=== PATIENT | male | born 1935 | race Caucasian/White ===

== ENCOUNTER 2018-03-06 14:46 | Outpatient (CLI) ==
--- NOTE | 2018-03-06 15:32 | DI ---
EXAM: PA and lateral views of the chest HISTORY: Cough. COMPARISON: Chest x-ray 08/04/2014 FINDINGS: The cardiomediastinal silhouette is normal. There is no pneumothorax or pleural effusion. There is no consolidation, nodule or mass. The osseous structures demonstrate degenerative disease of the spine. IMPRESSION: No acute cardiopulmonary process
== END 2018-03-06 14:47 | disposition home or self-care (01) ==
LOC: RAD 14:46
PROVIDERS: ATTEND Internal Medicine
DX: R05 Cough (principal)

== ENCOUNTER 2018-04-09 07:47 | Day surgery (SDC) ==
[2018-04-09] MEDS ORDERED: LIDOCAINE 1% 20 ML MDV ID STA (08:35)
[2018-04-09 16:49] VITALS: BP 178/78; TEMP 98.3
--- NOTE | 2018-04-11 10:30 | OP ---
INDICATIONS FOR PROCEDURE: 82-year-old gentleman presents for colonoscopy exam. He has a history of adenomatous polyps with this last colonoscopy approximately three years ago. He has had a little change in his bowel habits lately indicating increased constipation. MEDICATIONS: NONE PROCEDURE: COLONOSCOPY, SNARE POLYPECTOMY. REPORT: The risks, benefits, alternatives and limitations were discussed in detail with the patient. Informed consent was obtained. He elected to have the procedure done without sedation. A digital rectal exam revealed good tone, no mass. Hemorrhoids were felt. The colonoscope was introduced into the rectum and advanced under direct visual guidance to the cecum. The cecum was identified by the appendiceal orifice and IC valve. I then slowly withdrew the scope in a circumferential manner examining the mucosa quite carefully. I looked on the proximal and distal side of folds and flexures as best as possible. I was able to retroflex the scope in the right colon and left colon to increase visualization. On the distal side of the transverse colon there was a small 5 or 6 mm sessile polyp. I removed this by snare technique. In the proximal descending area there is a semi peduculated 7 mm polyp. I removed this by snare technique. I was not able to retrieve this polyp. There is large mouth and small mouth diverticula scattered throughout the descending and sigmoid colon. On retroflex view of the anal canal, there is small 1+ internal hemorrhoids. No other abnormalities were noted. The prep was good. The withdrawal time was 9 minutes and 30 seconds. The patient tolerated the procedure well with stable vital signs and pulse oximetry throughout. IMPRESSION: 1. TWO (2) POLYPS REMOVED ABOVE 2. DIVERTICULOSIS 3. SMALL INTERNAL HEMORRHOIDS RECOMMENDATIONS: 1. High fiber diet 2. Office visit as needed 3. Await pathology results; if everything is benign and he is clinically well, consider a surveillance examination again in three years, sooner if there are any signs or symptoms to indicate otherwise. CC: DR. RHODA BRIAN
== END 2018-04-09 11:30 | disposition home or self-care (01) ==
LOC: SURG 07:47
PROVIDERS: ATTEND Internal Medicine Gastroenterology
DX: D12.3 Benign neoplasm of transverse colon (principal); K57.90 Diverticulosis of intestine, part unspecified, without perforation or abscess without bleeding; Z86.010 Personal history of colon polyps

== ENCOUNTER 2018-04-13 15:34 | Emergency (ER) | payer OTHER ==
[2018-04-13 15:39] VITALS: BP 199/95; TEMP 97.7; BMI 28.8
--- NOTE | 2018-04-13 17:11 | ED.PDOC ---
General ED Provider: Dr. MARCIA SOTO Chief Complaint: Hypertension Stated Complaint: ELevated BP; Had a colonoscopy on Sunday and bp was high then. States he was outside today and when he checked his bp it was 205/104. States does not have htn history, does not take bp meds and has no symptoms. Became worried and came in. Was 195/95 upon arival here Time Seen by Physician: 16:10 Mode of Arrival: Walk-In Information Source: Patient Exam Limitations: No limitations Primary Care Provider: EVELIO DUONG Nursing and Triage Documentation Reviewed and Agree: Yes Does patient meet sepsis criteria?: No System Inflammatory Response Syndrome: Not Applicable Sepsis Protocol: For patient's 13 years and over: Temp is 96.8 and below OR 101 and greater Pulse >90 BPM Resp >20/minute Acutely Altered Mental Status Are patient's symptoms suggestive of a new infection, such as: -Pneumonia -Skin, Soft Tissue -Endocarditis -UTI -Bone, Joint Infection -Implantable Device -Acute Abdominal Infection -Wound Infection -Meningitis -Blood Stream Catheter Infection -Unknown Cardiovascular Complaint Exam - Hypertension Complaint/Exam Symptoms Are: Still present Timing: Intermittent Reported B/P Prior to Arrival: 205/104 Aggravating: Reports: Exertion, Position Alleviating: Reports: None Associated Signs and Symptoms: Denies: Chest pain, Vision changes, Anxiety, Recent stress, Headache, Numbness, Tingling, Weakness, Dizziness, Short of air, Swelling Related History: Reports: Current Miah Inhibitors (Just started) Related Surgical History: Reports: None Cardiac Risk Factors: Reports: None Recent Change in Medications: No JVD Present: No Carotid Bruit Present: No Femoral Pulses Bounding: No Differential Diagnoses: Hypertension, Hypertensive Urgency Review of Systems - Review Of Systems Constitutional: Reports: No symptoms Eyes: Reports: No symptoms Ears, Nose, Mouth, Throat: Reports: No symptoms Respiratory: Reports: No symptoms Cardiac: Reports: No symptoms GI: Reports: No symptoms : Reports: No symptoms Musculoskeletal: Reports: No symptoms Skin: Reports: No symptoms Neurological: Reports: No symptoms Endocrine: Reports: No symptoms Hematologic/Lymphatic: Reports: No symptoms All Other Systems: Reviewed and Negative Past Medical History - Past Medical History Previously Healthy: Yes Endocrine: Reports: None Cardiovascular: Reports: None Respiratory: Reports: None Hematological: Reports: None Gastrointestinal: Reports: None Genitourinary: Reports: None Neuro/Psych: Reports: None Musculoskeletal: Reports: None Cancer: Reports: None - Surgical History General Surgical History: Reports: None - Family History Family History: Reports: None - Social History Smoking Status: Never smoker Hx Substance Use: No Alcohol Screening: Heavy Physical Exam - Physical Exam Appearance: Well-appearing, No pain distress, Well-nourished Eyes: KENAN, EOMI, Conjunctiva clear ENT: Ears normal, Nose normal, Oropharynx normal Respiratory: Airway patent, Breath sounds clear, Breath sounds equal, Respirations nonlabored Cardiovascular: RRR, Pulses normal, No rub, No murmur GI/: Soft, Nontender, No masses, Bowel sounds normal, No Organomegaly Musculoskeletal: Normal strength, ROM intact, No edema, No calf tenderness Skin: Warm, Dry, Normal color Neurological: Sensation intact, Motor intact, Reflexes intact, Cranial nerves intact, Alert, Oriented Psychiatric: Affect appropriate, Mood appropriate Critical Care Note - Critical Care Note Total Time (mins): 30 Course - Course Hematology/Chemistry: 04/13/18 17:30 04/13/18 17:30 Orders, Labs, Meds: Lab Review 04/13/18 04/13/18 04/13/18 17:19 17:30 17:30 WBC 9.25 RBC 4.54 L Hgb 15.1 Hct 43.3 MCV 95.4 H MCH 33.3 H MCHC 34.9 RDW Coeff of Renetta 13.2 Plt Count 183 Immature Gran % (Auto) 0.3 Neut % (Auto) 67.0 Lymph % (Auto) 18.4 [place] % (Auto) 9.8 Eos % (Auto) 4.0 Baso % (Auto) 0.5 Immature Gran # (Auto) 0.0 Neut # (Auto) 6.2 Lymph # (Auto) 1.7 [place] # (Auto) 0.9 Eos # (Auto) 0.4 Baso # (Auto) 0.1 Sodium 138 Potassium 3.8 Chloride 104 Carbon Dioxide 25 Anion Gap 12.8 BUN 12 Creatinine 0.79 Estimated GFR (MDRD) 94.00 BUN/Creatinine Ratio 15.18 Glucose 103 Calcium 9.3 Total Bilirubin 0.7 AST 24 ALT 29 Alkaline Phosphatase 58 Total Protein 7.4 Albumin 3.9 Globulin 3.5 Albumin/Globulin Ratio 1.11 Urine Color Yellow Urine Clarity Clear Urine pH 6.0 Ur Specific [place] 1.015 Urine Protein 2+ Urine Glucose (UA) Negative Urine Ketones Negative Urine Blood Negative Urine Nitrite Negative Urine Bilirubin Negative Urine Urobilinogen 0.2 Ur Leukocyte Esterase Negative Orders Category Date Time Status CBC W/ AUTO DIFF Stat LAB 04/13/18 17:30 Completed CMP [COMPREHENSIVE METABOLIC PANEL] Stat LAB 04/13/18 17:30 Completed UA [URINALYSIS C & S IF INDICATED] Stat LAB 04/13/18 17:19 Completed Clonidine HCl [Catapres] MEDS 04/13/18 17:28 Discontinued 0.1 mg PO ONCE STA CHEST, 1V AP ONLY Stat RADS 04/13/18 17:15 Ordered Medications Discontinued Medications Generic Name Dose Route Start Last Admin Trade Name Freq PRN Reason Stop Dose Admin Clonidine 0.1 mg 04/13/18 17:28 04/13/18 17:33 Catapres PO 04/13/18 17:29 0.1 mg ONCE STA Administration Vital Signs: Temp Pulse Resp BP Pulse Ox 04/13/18 15:34 97.7 F 77 18 199/95 H 96 PHUONG Risk Score PHUONG Risk Score: Risk Score Odds of by 30D 0 0.1 (0.1-0.2) 1 0.3 (0.2-0.3) 2 0.4 (0.3-0.5) 3 0.7 (0.6-0.9) 4 1.2 (1.0-1.5) 5 2.2 (1.9-2.6) 6 3.0 (2.5-3.6) 7 4.8 (3.8-6.1) Departure - Departure Time of Disposition: 19:30 Disposition: HOME SELF-CARE Discharge Problem: Hypertension Instructions: Hypertension (ED) Condition: Good Pt referred to PMD for follow-up: Yes IPMP verified?: No Additional Instructions: Remain on salt restricted diet/Avoid Caffeine/take meds as directed/ See Dr Duong next week/Explained and gave copy of lab Do not abruptly discontinue Clonidine as it can cause rebound hypertension Allergies/Adverse Reactions: Allergies No Known Allergies Allergy (Verified 04/13/18 15:39) Home Medications: Ambulatory Orders Aspirin [Aspirin EC] 325 mg PO DAILY 04/05/18 Clonidine HCl [Catapres] 0.1 mg PO BID #30 tablet 04/13/18 Additional Information: Work up recommended including EKG and portable CXR; Patient refused.Explained importance of complete evaluation even if he did have a EKG & CXR earlier this year. TO SIGN REFUSAL FORM!
[2018-04-13] MEDS ORDERED: CATAPRES PO STA (17:28)
== END 2018-04-13 19:55 | disposition home or self-care (01) ==
LOC: ED 15:34
DX: I10 Essential (primary) hypertension (principal)
CPT/HCPCS: 36415; 80053; 81001; 85025; 99283

== ENCOUNTER 2018-04-27 23:29 | Emergency (ER) ==
[2018-04-27 23:40] VITALS: BP 178/89; TEMP 97; BMI 29.2
== END 2018-04-27 23:45 | disposition left against medical advice (07) ==
LOC: ED 23:29
DX: I10 Essential (primary) hypertension (principal)
CPT/HCPCS: 99281

== ENCOUNTER 2018-07-21 12:00 | Inpatient (IN) | payer OTHER ==
[2018-07-21] MEDS ORDERED: ZOFRAN 4 MG/2 ML IM STA (12:12)
[2018-07-21] MEDS ORDERED: CATAPRES PO STA ×2 (12:12→13:56)
--- NOTE | 2018-07-21 12:39 | CT ---
EXAM: CT scan of the abdomen and pelvis without contrast HISTORY: Abdominal pain, constipation. TECHNIQUE: Helical imaging of the abdomen pelvis was performed without contrast. 3 mm thin axial im ages and coronal and sagittal reconstructions were provided for interpretation. FINDINGS: The liver, spleen, pancreas, adrenal glands and kidneys appear normal. The proximal urete rs are normal size. The small and large bowel loops are normal caliber. There is no free air. No r etroperitoneal abnormalities are seen. The helical images obtained through the pelvis demonstrate a normal appearance of the rectum, urinary bladder. There is no free fluid seen within the pelvis. No retroperitoneal abnormalities are seen. The appendix appears normal. Scattered diverticula are seen within the descending colon and sigmoid colon without acute inflammation. Lung bases are clear. No lytic or blastic lesions are seen withi n the osseous structures. IMPRESSION: There is no bowel obstruction or acute inflammatory change seen within the abdomen and p shabana. No significant constipation. There is no ureteral obstruction. Mild diverticular disease of the descending colon and sigmoid colon without acute formation.
[2018-07-21] MEDS ORDERED: PROCARDIA XL PO STA (13:14)
[2018-07-21] MEDS ORDERED: APRESOLINE PO STA (13:15)
[2018-07-21] MEDS ORDERED: PROCARDIA XL ONE (13:24)
--- NOTE | 2018-07-21 14:38 | ED.PDOC ---
General ED Provider: Dr. MARCIA QUINTANILLA-ER Chief Complaint: Constipation Stated Complaint: im constipated and im nervous Time Seen by Physician: 12:05 Mode of Arrival: Walk-In Information Source: Patient Exam Limitations: No limitations Primary Care Provider: EVELIO ESCOBAR Nursing and Triage Documentation Reviewed and Agree: Yes Does patient meet sepsis criteria?: No System Inflammatory Response Syndrome: Not Applicable Sepsis Protocol: For patient's 13 years and over: Temp is 96.8 and below OR 101 and greater Pulse >90 BPM Resp >20/minute Acutely Altered Mental Status Are patient's symptoms suggestive of a new infection, such as: -Pneumonia -Skin, Soft Tissue -Endocarditis -UTI -Bone, Joint Infection -Implantable Device -Acute Abdominal Infection -Wound Infection -Meningitis -Blood Stream Catheter Infection -Unknown Cardiovascular Complaint Exam - Hypertension Complaint/Exam Onset/Duration: unknown Symptoms Are: Still present Timing: Constant Reported B/P Prior to Arrival: 230/130 Aggravating: Reports: None Alleviating: Reports: None Associated Signs and Symptoms: Denies: Chest pain, Vision changes, Anxiety, Recent stress, Headache, Numbness, Tingling, Weakness, Dizziness, Short of air, Swelling Recent Change in Medications: No A/V [place]: No Papilledema Present: No JVD Present: No Differential Diagnoses: Other Quality Indicator For Non-Traumatic Chest Pain/Syncope: EKG Performed Review of Systems - Review Of Systems Constitutional: Reports: No symptoms Eyes: Reports: No symptoms Ears, Nose, Mouth, Throat: Reports: No symptoms Respiratory: Reports: No symptoms Cardiac: Reports: No symptoms GI: Reports: Nausea : Reports: No symptoms Musculoskeletal: Reports: No symptoms Skin: Reports: No symptoms Neurological: Reports: No symptoms Endocrine: Reports: No symptoms Hematologic/Lymphatic: Reports: No symptoms All Other Systems: Reviewed and Negative Past Medical History - Past Medical History Previously Healthy: Yes Endocrine: Reports: None Cardiovascular: Reports: None Respiratory: Reports: None Hematological: Reports: None Gastrointestinal: Reports: None Genitourinary: Reports: None Neuro/Psych: Reports: None Musculoskeletal: Reports: None Cancer: Reports: None - Surgical History General Surgical History: Reports: None - Family History Family History: Reports: None - Social History Smoking Status: Never smoker Hx Substance Use: No Alcohol Screening: Heavy Lives: With family - Immunizations Tetanus Shot up to Date: No Physical Exam - Physical Exam Appearance: Well-appearing, No pain distress, Well-nourished Eyes: KENAN, EOMI, Conjunctiva clear ENT: Ears normal, Nose normal, Oropharynx normal Neck: Supple Respiratory: Airway patent, Breath sounds clear, Breath sounds equal, Respirations nonlabored Cardiovascular: RRR, Pulses normal, No rub, No murmur GI/: Soft, Nontender, No masses, Bowel sounds normal, No Organomegaly Musculoskeletal: Normal strength, ROM intact, No edema, No calf tenderness Skin: Warm, Dry, Normal color Neurological: Sensation intact, Motor intact, Reflexes intact, Cranial nerves intact, Alert, Oriented Psychiatric: Affect appropriate, Mood appropriate, Anxious Interpretation - Radiology Interpretation Radiology Interpretation By: Radiologist Radiology Results: Negative Exam Interpreted: CT Scan - EKG Interpretation Time of EKG #1: 14:37 Rate: Normal Rhythm: Sinus Ectopy: None [place]: NL ST Segment: Normal Interpretation: nsr Re-Evaluation - Re-Evaluation Time of Re-Evaluation: 14:38 Status: Unchanged (bp 220/100) Vital Signs Stable: Yes Pain Level: 0 Appearance: NAD Lungs: Clear Skin: Warm and Dry Neuro: Alert and Oriented X3 CV: RRR Physician Notification - Case Discussed Physician Notified: dr escobar Time of Notification: 14:38 Critical Care Note - Critical Care Note Total Time (mins): 30 Course - Course Hematology/Chemistry: 07/21/18 13:10 07/21/18 13:10 Orders, Labs, Meds: Lab Review 07/21/18 07/21/18 13:10 13:10 WBC 7.13 RBC 3.81 L Hgb 12.9 L Hct 34.6 L MCV 90.8 MCH 33.9 H MCHC 37.3 H RDW Coeff of Renetta 11.4 L Plt Count 159 Immature Gran % (Auto) 0.1 Neut % (Auto) 84.3 Lymph % (Auto) 8.3 L [place] % (Auto) 6.9 Eos % (Auto) 0.1 Baso % (Auto) 0.3 Immature Gran # (Auto) 0.0 Neut # (Auto) 6.0 Lymph # (Auto) 0.6 [place] # (Auto) 0.5 Eos # (Auto) 0.0 Baso # (Auto) 0.0 ESR 7 Sodium 124.9 L Potassium 4.00 Chloride 92.5 L Carbon Dioxide 23.8 Anion Gap 12.60 BUN 12.2 Creatinine 0.66 Estimated GFR (MDRD) 116.00 BUN/Creatinine Ratio 18.48 Glucose 137.3 H Calcium 8.34 L Total Bilirubin 1.24 AST 35.3 ALT 41.7 Alkaline Phosphatase 32.1 L Total Creatine Kinase 48.2 L Troponin I < 0.012 Total Protein 7.11 Albumin 4.14 Globulin 2.97 Albumin/Globulin Ratio 1.39 Amylase 64.7 Lipase 49.4 TSH 1.940 Orders Category Date Time Status EKG-(ED ONLY) Stat CARDIO 07/21/18 12:11 Completed Hardwood Finisher [ED BOOK CANVASSER APPLIED] .ONCE EMERGENCY 07/21/18 12:12 Active AMYLASE Stat LAB 07/21/18 13:10 Completed CBC W/ AUTO DIFF Stat LAB 07/21/18 13:10 Completed COMPREHENSIVE METABOLIC PANEL Stat LAB 07/21/18 13:10 Completed CREATINE KINASE Stat LAB 07/21/18 13:10 Completed ESR Stat LAB 07/21/18 13:10 Completed LIPASE Stat LAB 07/21/18 13:10 Completed THYROID STIMULATING HORMONE Stat LAB 07/21/18 13:10 Completed TROPONIN I Stat LAB 07/21/18 13:10 Completed URINALYSIS C & S IF INDICATED Stat LAB 07/21/18 12:11 Uncollected Clonidine HCl [Catapres] MEDS 07/21/18 12:12 Discontinued 0.1 mg PO ONCE STA Clonidine HCl [Catapres] MEDS 07/21/18 13:56 Discontinued 0.1 mg PO ONCE STA Hydralazine HCl [Apresoline] MEDS 07/21/18 13:15 Discontinued 10 mg PO ONCE STA [id number] MG in 0.86% SODIUM CHLORIDE @ 5 MG/HR( MEDS 07/21/18 15:00 Ordered 200ml) 0.9 % Sodium Chloride [Premix 200Ml 0.86% Sodium Chloride] 1 bag Nicardipine in NaCl, Iso-Osm [Cardene-NaCl 20 mg/200 ml Soln] 20 mg IV 5 mg/hr Nifedipine [Procardia Xl] MEDS 07/21/18 13:24 Discontinued 30 mg .ROUTE .STK-MED ONE Nifedipine [Procardia Xl] MEDS 07/21/18 13:14 Discontinued 60 mg PO ONCE STA Ondansetron HCl/Pf [Zofran 4 mg/2 ml] MEDS 07/21/18 12:12 Discontinued 4 mg IM ONCE STA CT ABDOMEN/PELVIS WO CONTRAST Stat RADS 07/21/18 12:13 Completed Medications Discontinued Medications Generic Name Dose Route Start Last Admin Trade Name Vanita HYDE Reason Stop Dose Admin Clonidine 0.1 mg 07/21/18 12:12 07/21/18 12:27 Catapres PO 07/21/18 12:13 0.1 mg ONCE STA Administration Clonidine 0.1 mg 07/21/18 13:56 07/21/18 14:01 Catapres PO 07/21/18 13:57 0.1 mg ONCE STA Administration Hydralazine HCl 10 mg 07/21/18 13:15 07/21/18 13:25 Apresoline PO 07/21/18 13:16 10 mg ONCE STA Administration Nifedipine 60 mg 07/21/18 13:14 07/21/18 13:25 Procardia Xl PO 07/21/18 13:15 60 mg ONCE STA Administration Ondansetron HCl 4 mg 07/21/18 12:12 07/21/18 12:27 Zofran 4 Mg/2 Ml IM 07/21/18 12:13 4 mg ONCE STA Administration Vital Signs: Temp Pulse Resp BP Pulse Ox 07/21/18 12:01 96.9 F L 87 20 232/110 H 96 PHUONG Risk Score PHUONG Risk Score: Risk Score Odds of by 30D 0 0.1 (0.1-0.2) 1 0.3 (0.2-0.3) 2 0.4 (0.3-0.5) 3 0.7 (0.6-0.9) 4 1.2 (1.0-1.5) 5 2.2 (1.9-2.6) 6 3.0 (2.5-3.6) 7 4.8 (3.8-6.1) Departure - Departure Time of Disposition: 14:38 Disposition: HOME SELF-CARE Discharge Problem: Malignant hypertension Instructions: Hypertensive Crisis (ED) Condition: Good Pt referred to PMD for follow-up: Yes IPMP verified?: No Allergies/Adverse Reactions: Allergies No Known Allergies Allergy (Verified 07/21/18 12:04) Home Medications: Ambulatory Orders Aspirin [Aspirin EC] 325 mg PO DAILY 04/05/18 Clonidine HCl [Catapres] 0.1 mg PO BID #30 tablet 04/13/18 Losartan Potassium [Cozaar] 50 mg PO DAILY 04/27/18 Disposition Discussed With: Patient, Family
[2018-07-21] MEDS ORDERED: PHENERGAN 25 MG/ML VIAL 12.5 MG in SODIUM CHLORIDE 50 ML IV PRN (14:41)
[2018-07-21] MEDS ORDERED: CARDENE-NACL 20 MG/200 ML SOLN 20 MG in PREMIX 200ML 0.86% SODIUM CHLORIDE 1 BAG IV SCH (15:00)
[2018-07-21] MEDS ORDERED: PHENERGAN 25 MG/ML VIAL ONE ×2 (15:22→22:25)
[2018-07-21] MEDS ORDERED: CARDENE-NACL 20 MG/200 ML SOLN 200 ML IV ONE ×2 (15:22→20:53)
[2018-07-21 15:33] VITALS: BMI 27.6
[2018-07-21] MEDS ORDERED: SODIUM CHLORIDE 50 ML IV ONE (15:49)
[2018-07-21] MEDS: MIRALAX PO SCH ×2 (15:52→20:31)
[2018-07-21] MEDS: SENNA PO SCH (15:52)
[2018-07-21] MEDS: VALIUM PO SCH ×2 (18:26→20:32)
[2018-07-21] MEDS: SODIUM CHLORIDE 1,000 ML IV SCH (18:26)
[2018-07-21] MEDS: ANTIVERT PO SCH ×2 (18:26→20:31)
[2018-07-21] MEDS: CARDENE-NACL 20 MG/200 ML SOLN 20 MG in PREMIX 200ML 0.86% SODIUM CHLORIDE 1 BAG IV SCH ×2 (18:28→21:06)
[2018-07-21] MEDS: CATAPRES PO SCH (20:31)
[2018-07-21] MEDS: TYLENOL PO PRN (21:53)
[2018-07-22] MEDS ORDERED: CARDENE-NACL 20 MG/200 ML SOLN 200 ML IV ONE (02:09)
[2018-07-22] MEDS: CARDENE-NACL 20 MG/200 ML SOLN 20 MG in PREMIX 200ML 0.86% SODIUM CHLORIDE 1 BAG IV SCH ×2 (02:23→09:07)
[2018-07-22] MEDS: VALIUM PO SCH (05:05)
[2018-07-22] MEDS ORDERED: LOVENOX SUBCUT SCH (09:00)
[2018-07-22] MEDS ORDERED: COZAAR PO SCH (09:00)
[2018-07-22] MEDS ORDERED: NON-FORMULARY MEDICATION (Losartan Potassium 50 MG) PO SCH (09:00)
--- NOTE | 2018-07-22 11:52 | PN ---
DATE OF SERVICE: 07/21/18 SUBJECTIVE: This is a 83-year-old White Male who was hospitalized with light-headedness, head movement with nausea and had vomited once just before coming to the emergency room today. Blood pressure was recorded as 120/120. The patient is on Cardene drip now. When I examined the patient in [facility], the patient's blood pressure was 145/85 with 5 mg/hr Cardene drip. REVIEW OF SYSTEMS: CONSTITUTIONAL: No night sweats. No fatigue, malaise, lethargy. No fever or chills. HEENT: Eyes: No visual changes. No eye pain. No eye discharge. ENT: No runny nose. No epistaxis. No sinus pain. No sore throat. No odynophagia. No congestion. RESPIRATORY: No cough, no congestion. No hemoptysis. No shortness of breath. CARDIOVASCULAR: No angina symptoms. No CHF symptoms. No atypical chest pain for CAD. No palpitations. No orthopnea. GASTROINTESTINAL: No abdominal pain. Mild nausea. No vomiting. No diarrhea or constipation. No hematemesis. No hematochezia. GENITOURINARY: No urgency. No frequency. No dysuria. No hematuria. No obstructive symptoms. No discharge. No pain. No significant abnormal bleeding. MUSCULOSKELETAL: No musculoskeletal pain; no joint swelling. NEUROLOGICAL: No headache. No neck pain. No syncope. No seizures. No dizziness. PSYCHIATRIC: Not anxious. No depression. No suicidal thoughts. No homicidal thoughts. SKIN: No rash. No lesions. No wounds. ENDOCRINE: No unexplained weight loss. No weight gain. HEMATOLOGIC/LYMPHATIC: No anemia. No purpura. No petechiae. No prolonged or excessive bleeding. No palpable lymph nodes. PHYSICAL EXAMINATION: GENERAL: The patient is oriented to time, place and person. HEENT: Head normocephalic, atraumatic. Eyes: Extraocular muscles are intact. Pupils are equal, round and reactive to light and accommodation. Ears: No lesions. Nose appeared normal. Throat: No exudate or erythema. NECK: Supple. No JVD, no carotid bruit. No lymphadenopathy or thyromegaly. LUNGS: Clear to auscultation. Percussion note normal. Chest symmetrical. HEART: S1, S2, no S3. No murmurs. No cyanosis or clubbing. No ascites. Pulses: Dorsalis pedis and posterior tibial pulses +1 to +2 both sides. ABDOMEN: Soft. Nontender. Bowel sounds active. No CVA tenderness. No mass felt. EXTREMITIES: No edema. Full range of motion of all extremities, equal. NEUROLOGIC: No focal deficit. Cranial nerves II through XII are grossly intact. No headache, no double vision or headache. SKIN: Not dry. Intact. Turgor - normal. LYMPHATIC: No palpable lymph nodes/no lymphedema. MUSCULOSKELETAL: Normal joints with no swelling. Muscle tone is normal. ASSESSMENT: 1. SEVERE HYPERTENSION 2. ACUTE VESTIBULAR DYSFUNCTION 3. DYSLIPIDEMIA 4. CHRONIC LUNG DISEASE WITH ASTHMA PLAN: 1. Continue Cardene drip. 2. Also start Antivert and Valium. The patient's CT scan of the abdomen was unremarkable. CONDITION: Stable TIME SPENT: More than 30 minutes. Plan and coordination of the patient's care discussed in the presence of nurse. SNEHAL
[2018-07-22] MEDS: ANTIVERT PO SCH (12:28)
[2018-07-22] MEDS ORDERED: ZOFRAN 4 MG/2 ML ONE (12:40)
[2018-07-22] MEDS: COZAAR PO SCH ×2 (12:45→20:19)
[2018-07-22] MEDS: CATAPRES PO SCH ×2 (12:45→20:19)
[2018-07-22] MEDS: ZIAC 5-6.25 MG PO SCH (12:45)
[2018-07-22] MEDS: MIRALAX PO SCH ×2 (12:46→20:20)
[2018-07-22] MEDS: SENNA PO SCH (12:48)
[2018-07-22] MEDS: ASPIRIN EC PO SCH (12:55)
[2018-07-22] MEDS: K-DUR PO SCH ×2 (12:56→18:24)
--- NOTE | 2018-07-22 13:04 | PN ---
DATE OF SERVICE: 07/22/18 SUBJECTIVE: 83-year-old white male hospitalized with severe hypertension. The patient had dizziness, light-headedness with nausea for 2 to 3 days prior to that. The patient's dizziness and nausea subsided. The patient seems to be confused but alert. He seems to be somewhat angry. Blood pressure systolic is 145. REVIEW OF SYSTEMS: CONSTITUTIONAL: No night sweats. No fatigue, malaise, lethargy. No fever or chills. HEENT: Eyes: No visual changes. No eye pain. No eye discharge. ENT: No runny nose. No epistaxis. No sinus pain. No sore throat. No odynophagia. No congestion. RESPIRATORY: No cough, no congestion. No hemoptysis. No shortness of breath. CARDIOVASCULAR: No angina symptoms. No CHF symptoms. No atypical chest pain for CAD. No palpitations. No orthopnea. GASTROINTESTINAL: No abdominal pain. No nausea or vomiting. No diarrhea or constipation. No hematemesis. No hematochezia. GENITOURINARY: No urgency. No frequency. No dysuria. No hematuria. No obstructive symptoms. No discharge. No pain. No significant abnormal bleeding. MUSCULOSKELETAL: No musculoskeletal pain; no joint swelling. NEUROLOGICAL: The patient is oriented to person and place. No headache. No neck pain. No syncope. No seizures. No dizziness. PSYCHIATRIC: Not anxious. No depression. No suicidal thoughts. No homicidal thoughts. SKIN: No rash. No lesions. No wounds. ENDOCRINE: No unexplained weight loss. No weight gain. HEMATOLOGIC/LYMPHATIC: No anemia. No purpura. No petechiae. No prolonged or excessive bleeding. No palpable lymph nodes. PHYSICAL EXAMINATION: VITAL SIGNS: BP systolic 145. Temperature 99.3, pulse 75, respiratory rate 20, BP 130/65, pulse ox 94% on room air. HEENT: Head normocephalic, atraumatic. Eyes: Extraocular muscles are intact. Pupils are equal, round and reactive to light and accommodation. Ears: No lesions. Nose appeared normal. Throat: No exudate or erythema. NECK: Supple. No JVD, no carotid bruit. No lymphadenopathy or thyromegaly. LUNGS: Decreased breath sounds but clear to auscultation. Percussion note normal. Chest symmetrical. HEART: S1, S2, no S3. No murmurs. No cyanosis or clubbing. No ascites. Pulses: Dorsalis pedis and posterior tibial pulses +1 to +2 both sides. ABDOMEN: Soft. Nontender. Bowel sounds active. No CVA tenderness. No mass felt. EXTREMITIES: No edema. Full range of motion of all extremities, equal. Babinski is downgoing. Face is symmetrical. Pupils equal and reactive to light normally. Swallow is normal. Gait is steady with help. He is able to take a few steps on his own which he had a problem according to the on Sunday, mainly on Sunday. NEUROLOGIC: Oriented to person and place. No focal deficit. Cranial nerves II through XII are grossly intact. No headache, no double vision or headache. SKIN: Not dry. Intact. Turgor - normal. LYMPHATIC: No palpable lymph nodes/no lymphedema. MUSCULOSKELETAL: Normal joints with no swelling. Muscle tone is normal. LABS: Hemoglobin 12.9, hematocrit 34, WBC 8,900, normal differential. Creatinine 0.6, BUN 12, potassium 3.5. ASSESSMENT: 1. HYPERTENSION SEEMS TO BE UNDER CONTROL WITH CARDENE DRIP. 2. CONFUSION/DEMENTIA COULD BE FROM CHANGE OF PLACE, HOSPITALIZATION, MEDICATION EFFECT. 3. 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 PLAN: 1. Will discontinue Cardene drip and will start the patient on Ziac 5/6.25 daily. 2. Cozaar 50 mg b.i.d. 3. Norvasc 5 mg at night. 4. The changes were discussed with the patient. 5. MRI of the brain with contrast and carotid scan. 6. Goal of blood pressure 135/85 or less discussed. 7. DASH diet discussed. Telemetry no arrhythmias, EKG sinus rhythm, nonspecific ST-T wave change. ADDENDUM: The patient's MRI showed possibility of heart defect vs acute left pontine infarct; clinical correlation was suggested. 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 Likely cause is hypertension with lacunar infarct mostly infarct in the pontine area or lacunar. The patient's blood pressure initially was 220/120 now the systolic is from 140 to 170 - 180. The patient is off Cardene drip. He has been started on Ziac 5/6.25 along with Cozaar 50 b.i.d. and Clonidine 0.1 twice a day. Norvasc 5 mg extra dose with IV Vasotec was given. Now the systolic blood pressure is 160. The patient's confusion could be from hypertensive encephalopathy with some parts of stroke. The patient is moving all his extremities. The left side of the carotid artery showed 50 to 70% plaque for which she is going to undergo CT angiogram tomorrow. The patient's overall condition is stable. Later on the patient's will be talked to about the stroke but at the present time she is not here. ADDENDUM: I talked to around 4:45 p.m. According to her, the patient's problem started on Sunday morning, noticed that he was somewhat unsteady with his gait and somewhat confused. He had very poor intake throughout the day. The problem continued on Sunday. On Sunday evening she decided to bring him to the emergency room. The patient's problem was worse according to the when he started moving, if he sits down or stays still he was fine. Nausea was associated with walking. I explained to her that the patient had a stroke involving demarcus area, brainstem area. The balance gets affected and his confusion could be related to hypertensive encephalopathy. The medications all discussed with the patient. The patient is going to have CT angiogram tomorrow of carotid arteries and brain vessels. According to the , the patient is not taking his medications regularly. CONDITION: Stable. PROGNOSIS: Guarded. TIME SPENT: More than 30 minutes. Plan and coordination of the patient's care discussed in the presence of nurse. SNEHAL
--- NOTE | 2018-07-22 13:19 | MRI ---
EXAM: MRI brain without and with IV contrast. DATE: 07/22/2018. HISTORY: Dizziness, headaches, sudden onset of confusion. TECHNIQUE: Sagittal T1W postcontrast, axial T2W, axial FLAIR, axial T1W pre and postcontrast, axial DWI, coronal T1W postcontrast, and coronal T2W GRE sequences of the brain were obtained using 1.2 Pamela la magnet. Note: Motion artifacts on multiple sequences limit sensitivity of the examination. CONTRAST: Dotarem - 17 ml IV. COMPARISON: None. FINDINGS: The lateral ventricles, third ventricle, Sylvian fissures, and many cerebral sulci are pro minent. Aqueduct of Sylvius appears narrow. Fourth ventricle is not enlarged. No midline shift, mass effect or abnormal extra-axial fluid collection is apparent. A 6 x 3 mm DWI mildly bright focus in the lef t paramidline demarcus is seen on axial image #8. No acute hemorrhage or enhancing neoplasm is identifie d. No abnormal contrast enhancement is identified in the brain, meninges or dura. Small, confluent rim of T2W/FLAIR hyperintensity is observed in the white matter abutting each lateral ventricle. Sma ll number of 2-5 mm diameter, T2W/FLAIR bright, non-enhancing foci are scattered within the marrufo ra diata, centrum semiovale and subcortical white matter bilaterally. T2W bright, T1W/FLAIR dark, 6 mm focus is present in the left caudate head. The durham - white matter differentiation is normal. No mi gration or diverticulation abnormality is identified. The amygdala and parahippocampal gyri are rambo lar bilaterally. The 7th/8th cranial nerve complexes, cerebellopontine angles, and visible cervical spinal cord are normal. There is no cerebellar tonsillar ectopia. The pituitary gland is questionab ly small in size. Corpus callosum is normal in size and configuration. Flow voids are present in th e major intracranial arteries and in the dural venous sinuses. No aneurysm, AVM or dural venous sinu s thrombosis is apparent. No orbit abnormality is identified. The mastoid air cells are unremarkabl e. There is no acute sinusitis. No neck mass or lymphadenopathy is detected. No calvarial neoplasm or acute fracture is evident. IMPRESSIONS: 1. DWI artifact versus acute infarct of the left paramidline demarcus. Correlate with clinical symptoms . 2. Central > peripheral cerebral atrophy is more likely than NPH. 3. 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 4. No acute hemorrhage or enhancing neoplasm. 5. 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 6. Somewhat small pituitary gland.
--- NOTE | 2018-07-22 13:32 | US ---
EXAM: Carotid ultrasound HISTORY: Sudden onset of confusion, hypertension, dizziness COMPARISON: None TECHNIQUE: Carotid ultrasound was performed using Duplex imaging with durham scale, color, and Doppler imaging performed. FINDINGS: Right carotid: There is atherosclerotic plaque in the common carotid and bulb/internal carotid arter y. Narrowing in the bulb/proximal internal carotid artery appears moderate or severe. Peak systolic v elocity measurement in the right internal carotid artery is 0.9 meters per second. End-diastolic jayashree ocity measurement in the right internal carotid artery is 0.2 meters per second. Right internal to c ommon carotid artery peak systolic velocity ratio is 1.2. Flow in the right vertebral artery is ante grade. Left carotid: There is atherosclerotic plaque in the common carotid and bulb/internal carotid artery . Narrowing in the bulb/proximal internal carotid artery appears moderate or severe Peak systolic ve locity measurement in the left internal carotid artery is 1.3 meters per second. End-diastolic veloc ity measurement in the left internal carotid artery is 0.2 meters per second. Left internal to commo n carotid artery peak systolic velocity ratio measures 2.0. Flow in the left vertebral artery is ant egrade. IMPRESSION: 1. Right internal carotid: Peak systolic velocity corresponds with mild (less than 50%) narrowing; ho wever, narrowing in the bulb/proximal internal carotid artery appears moderate or severe 2. Left internal carotid: Peak systolic velocity corresponds with moderate (50 - 69%) narrowing; hernandez rashmi, narrowing in the bulb/proximal internal carotid artery appears moderate or severe 3. Correlation with CT angiography neck recommended given discrepancy between velocities and visual estimate of narrowing.
[2018-07-22] MEDS ORDERED: VASOTEC IV IVP STA (14:57)
[2018-07-22] MEDS ORDERED: NORVASC PO STA (14:58)
[2018-07-22] MEDS ORDERED: LOVENOX SUBCUT STA (15:01)
[2018-07-22] MEDS: SODIUM CHLORIDE 1,000 ML IV SCH (15:31)
[2018-07-22] MEDS ORDERED: NORVASC PO SCH (21:00)
[2018-07-23] MEDS: ZOFRAN 4 MG/2 ML IVP PRN ×3 (03:02→22:09)
[2018-07-23] MEDS: SODIUM CHLORIDE 1,000 ML IV SCH (03:09)
[2018-07-23] MEDS: K-DUR PO SCH ×5 (08:53→21:40)
[2018-07-23] MEDS: CATAPRES PO SCH ×2 (08:59→21:32)
[2018-07-23] MEDS: ZIAC 5-6.25 MG PO SCH (08:59)
[2018-07-23] MEDS: COZAAR PO SCH ×2 (09:00→21:33)
[2018-07-23] MEDS ORDERED: LOVENOX SUBCUT SCH (09:00)
[2018-07-23] MEDS: ASPIRIN EC PO SCH ×2 (09:00→09:13)
[2018-07-23] MEDS: SENNA PO SCH (09:00)
[2018-07-23] MEDS: PROCARDIA XL PO SCH ×2 (09:01→21:38)
--- NOTE | 2018-07-23 11:13 | RS.PTINEVL ---
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 reports pt was not confused or unsteady prior to CVA. - Level of function Prior to this admission, the patient could do the following:: Independent Selfcare, Independent ADL's, Independent Ambulation, Drive Current Level of Function: Partially Dependent Current Equipment Used at Home: none Interventions - Objective Patient Orientation: Person, Place Current Interventions: IV's, Oxygen, Telemetry Range of Motion - ROM Right Upper Extremity AROM: WFL's Left Upper Extremity AROM: WFL's Right Lower Extremity AROM: WFL's Left Lower Extremity AROM: WFL's Muscle Strength - Muscle Strength Right Upper Extremity Strength: Mild Weakness (grossly 4/5) Left Upper Extremity Strength: Mild Weakness (grossly 4/5) Right Lower Extremity Strength: Mild Weakness (hip flex 4-/5, knee flex/ext 4/5 , ankle DF/PF 4/5) Left Lower Extremity Strength: Mild Weakness (hip flex 4-/5, knee flex/ext 4/5, ankle DF/PF 4/5) Sensation - Sensation Right Upper Extremity Sensation: Intact/Normal Left Upper Extremity Sensation: Intact/Normal Right Lower Extremity Sensation: Intact/Normal Left Lower Extremity Sensation: Intact/Normal Palpation Palpation Findings: None/Normal Balance - Sitting Balance and Reactions Static Sitting Balance: Poor Dynamic Sitting Balance: Poor Sitting Equilibrium Reactions: Delayed Left, Delayed Right Sitting Protective Reactions: Absent Left, Absent Right - Standing Balance and Reactions Static Standing Balance: Poor Dynamic Standing Balance: Poor Standing Equilibrium Reactions: Delayed Left, Delayed Right Standing Protective Reactions: Delayed Left, Delayed Right - Comments Balance Assessment Comments: tinetti balance assessment score: 07/05 consistent with high risk of falls Functional Mobility - Bed Mobility Rolling R/L: CGA Supine to Sit: Min Assist - Transfers Sit to Stand: CGA Stand to Sit: CGA - Safety Awareness Safety Awareness: Poor NATALI INDEX SCORE: n/a Ambulation - Ambulation Assistive Device Used: Gait belt Orthotic/Prosthetic Device: No Distance: 10ft in room Assistance needed with Ambulation: Min Assist Gait Deviations: Ataxic gait, Short stride, Deviates from path Ambulation Comments: pt leans backward with standing, wide SOTO, decreased step length, ataxic gait Factors Affecting Ambulation: Decreased Balance, Weakness, Decreased Safety, Cognitive Status, Limited Endurance Treatment time - Time with patient Length of Evaluation: 24 Total treatment time: 27 Patient Education - Education Patient Education: Activity Modification, Education of Plan of Care Teaching Recipient: Patient, Family Teaching Methods: Discussion Comments: discussion with patient and re: POC and MD limiting PT to room due to elevated BP. RN reports last BP 154/82. Assessment - Assessment Problem List:: Decreased level of function, Requires training/education, Decreased safety/Risk of falls, Weakness, Cognitive status limits abilities Rehab Potential: Good Further Therapy Indicated?: Yes Candidate for Swing Bed for Therapy Services?: pt may be candidate for swing bed due to previous level of function was independent living at home with . Evaluation Complexity: HISTORY: Medium (CVA, HTN, diverticulosis), EXAM OF BODY SYSTEMS: Medium (strength, balance, gait, posture, ), CLINICAL PRESENTATION: Medium (evolving), CLINICAL DECISION MAKING: Medium Short Term Goals GOAL #1: pt independent with positioning in bed. Goal to be met by: 07/26/18 GOAL #2: Transfer sup to/from sit CGA, sit to/from stand CGA Goal to be met by: 07/26/18 GOAL #3: pt amb with AAD 40ft with no LOB with CGA x 1 Goal to be met by: 07/26/18 GOAL #4: Improve dyn stand balance as noted by tinetti score Goal to be met by: 07/26/18 Halfway Goals GOAL #1: Transfer sup to/from sit to/from stand SBA Goal to be met by: 07/29/18 GOAL #2: pt amb functional household distances with AAD with no LOB SBA Goal to be met by: 07/29/18 GOAL #3: Improve BLE strength 4+ to 5/5 Goal to be met by: 07/29/18 Plan Plan of Care: Therapeutic EX, Therapeutic Activity Other:: gait training Frequency of Treatment: 1-2 X day, as tolerated Duration of Treatment: 1 Week Anticipated Discharge Destination: Home Treatment Diagnosis (ICD 10 Codes): ataxic gait R26.0. balance impairment R26.81. weakness M62.81 Has the Physician been added for Co-signature?: Yes
[2018-07-23] MEDS: MIRALAX PO SCH ×2 (12:46→21:38)
[2018-07-23] MEDS: TYLENOL PO PRN (13:36)
--- NOTE | 2018-07-23 16:09 | CT ---
EXAM: CTA of the neck was performed with and without contrast TECHNIQUE: Helical axial CTA of the neck was performed with and without contrast with multiplanar re constructions and separate work station 3-D renderings. COMPARISON: Carotid duplex from yesterday HISTORY: Carotid stenosis with discrepancy between the velocities and visual degree of atherosclerosi s on ultrasound FINDINGS: There is no acute soft tissue abnormality. There are no neck masses or pathologic lymph nod es. The thyroid gland is unremarkable. No acute abnormality in the upper chest. There are no acute os seous abnormalities. There is advanced degenerative change in the cervical spine.There is some emphys mikel in the lung apices. Aorta: There is advanced calcific atherosclerosis of the aorta with no evidence for dissection or an eurysm. The bilateral subclavian and brachio-cephalic arteries are widely patent. There is normal br anching anatomy of the great vessels. Right carotid artery: The origin of the right common carotid artery off the brachiocephalic and the proximal common carotid artery in the neck are widely patent. There is advanced calcific atherosclero sis at the common carotid bifurcation which results in 80% luminal diameter narrowing of the distal aspect of the common carotid artery at the bifurcation. There is a post stenotic dilatation of the r ight internal carotid artery and the more distal cervical right internal carotid artery is widely pat ent but somewhat diminutive. Right vertebral artery: The origin of the right vertebral artery from the right subclavian artery is widely patent. The course of the right vertebral artery in the neck is normal with no focal stenosi s or dissection or aneurysm. Left carotid artery: The origin of the left common carotid artery off the aortic arch and the common carotid artery in the neck are widely patent. Likewise there is advanced calcific atherosclerosis at the bifurcation resulting in high-grade stenosis also measuring about 80% luminal diameter narrowing with a post stenotic dilatation of the left internal carotid artery. The left internal carotid aislinn ry distally in the neck is widely patent but also diminutive. Left vertebral artery: There is a low origin of the left vertebral artery off of the subclavian arter y which is widely patent. The course of the left vertebral artery in the neck is unremarkable with no focal stenosis or aneurysm or dissection. The vertebral arteries are codominant. IMPRESSION: 1. 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 2. Widely patent vertebral arteries.
[2018-07-23] MEDS ORDERED: DULCOLAX RC PRN (21:05)
[2018-07-23] MEDS ORDERED: XANAX PO STA (21:06)
[2018-07-23] MEDS ORDERED: VISTARIL INJ IM PRN (21:07)
[2018-07-24 06:23] VITALS: TEMP 98.2
[2018-07-24] MEDS ORDERED: VASOTEC IV IVP STA (06:42)
[2018-07-24] MEDS ORDERED: CATAPRES ONE (07:59)
[2018-07-24] MEDS: COZAAR PO SCH (08:06)
[2018-07-24] MEDS: K-DUR PO SCH (08:07)
[2018-07-24] MEDS: SENNA PO SCH (08:07)
[2018-07-24] MEDS: PROCARDIA XL PO SCH (08:07)
[2018-07-24] MEDS: ASPIRIN EC PO SCH (08:07)
[2018-07-24] MEDS: ZIAC 5-6.25 MG PO SCH (08:07)
[2018-07-24] MEDS ORDERED: THORAZINE PO STA (08:13)
[2018-07-24] MEDS ORDERED: ATIVAN IVP STA (08:13)
[2018-07-24] MEDS: MIRALAX PO SCH (08:56)
[2018-07-24] MEDS: SODIUM CHLORIDE 1,000 ML IV SCH (08:57)
[2018-07-24] MEDS ORDERED: PLAVIX PO SCH (09:00)
[2018-07-24] MEDS ORDERED: CATAPRES PO SCH (09:00)
--- NOTE | 2018-07-24 09:46 | HP ---
DATE OF SERVICE: 07/21/18 HISTORY OF PRESENT ILLNESS: This is an 83-year-old male who presented to the emergency room complaining of nausea, light-headedness, dizzy. He has a history of noncompliance with both medications, lifestyle, followup. PAST MEDICAL HISTORY: Dyslipidemia for which he refuses any statin treatment Hypertension Osteoarthritis Previous smoker PAST SURGICAL HISTORY: None REVIEW OF SYSTEMS: CONSTITUTIONAL: No night sweats. No fatigue, malaise, lethargy. No fever or chills. HEENT: Eyes: No visual changes. No eye pain. No eye discharge. ENT: No runny nose. No epistaxis. No sinus pain. No sore throat. No odynophagia. No ear pain. No congestion. RESPIRATORY: No cough, no congestion. No hemoptysis. No shortness of breath. CARDIOVASCULAR: No angina symptoms. No CHF symptoms. No atypical chest pain for CAD. No palpitations. No PND. No orthopnea. GASTROINTESTINAL: Positive for nausea. No abdominal pain. No vomiting. No diarrhea or constipation. No hematemesis. No hematochezia. GENITOURINARY: No urgency. No frequency. No dysuria. No hematuria. No obstructive symptoms. No discharge. No pain. No significant abnormal bleeding. MUSCULOSKELETAL: No musculoskeletal pain. No joint swelling. No arthritis. NEUROLOGICAL: Positive for dizziness, light-headed. No headache. No neck pain. No syncope. No seizures. PSYCHIATRIC: Not anxious. No depression. No suicidal thoughts. No homicidal thoughts. SKIN: No rash. No lesions. No wounds. ENDOCRINE: No unexplained weight loss. No weight gain. HEMATOLOGIC/LYMPHATIC: No anemia. No purpura. No petechiae. No prolonged or excessive bleeding. No palpable lymph nodes. PERSONAL/FAMILY/SOCIAL HISTORY: Lives with his . Denies any alcohol or ilicit drug use. MEDICATIONS: (HOME) Aspirin 325 mg p.o. q.3d Catapres 0.1 mg p.o. b.i.d. Cozaar 50 mg p.o.b .i.d. ALLERGIES: NKDA PHYSICAL EXAMINATION: VITAL SIGNS: Temperature 96.9, heart rate 87, respirations 20, BP 232/110, pulse ox 96%. HEENT: Head normocephalic, atraumatic. Eyes: Extraocular muscles are intact. Pupils are equal, round and reactive to light and accommodation. Ears: No lesions. Nose appeared normal. Throat: No exudate or erythema. NECK: Supple. No JVD, no carotid bruit. No lymphadenopathy or thyromegaly. LUNGS: Diminished breath sounds. Clear to auscultation. Percussion note normal. Chest symmetrical. HEART: S1, S2, no S3. No murmurs. No cyanosis or clubbing. No ascites. Pulses: Dorsalis pedis and posterior tibial pulses +1 to +2 bilaterally. ABDOMEN: Soft. Nontender. Bowel sounds active. No CVA tenderness. No mass felt. EXTREMITIES: No edema. Full range of motion of all extremities, equal. NEUROLOGIC: Alert and oriented times three. Able to carry on a conversation. Reports light-headedness. No focal deficit. Cranial nerves II through XII are grossly intact. No headache, no double vision or headache. SKIN: Not dry. Intact. Turgor - normal. LYMPHATIC: No palpable lymph nodes/no lymphedema. MUSCULOSKELETAL: Normal joints with no swelling. Muscle tone is normal. LABS: White count 7.13, hemoglobin 12.9, hematocrit 34.6, platelets 159. Sodium 124.9 , potassium 4.0, BUN 12, creatinine 0.66, glucose 137. EKG showed no acute changes. Amylase 64, lipase 49, TSH 1.9. CT of the abdomen in the emergency room shows no bowel obstruction or acute inflammatory changes. No constipation. Mild diverticular disease without acute formation. ASSESSMENT: 1. HYPERTENSIVE CRISIS 2. DIZZINESS PLAN: 1. We will admit to Special Care Unit. 2. Routine telemetry orders. 3. CBC, CMP daily. 4. Start Cardene drip. 5. Will schedule MRI of the brain and carotid scan for in the morning. 6. Low sodium diet. 7. Will follow closely. TIME SPENT: More than 70 minutes. MTDD
--- NOTE | 2018-07-24 10:39 | DS ---
DATE OF SERVICE: 07/24/18 FINAL DIAGNOSIS: 1. ACUTE LEFT PARAMIDLINE KERMIT INFARCT 2. 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 SEVERE HYPERTENSION, LABILE 4. DYSLIPIDEMIA 5. HISTORY OF [place], 1989 6. CHRONIC LUNG DISEASE WITH HISTORY OF SMOKING IN THE PAST 7. HISTORY OF KIDNEY STONE TRANSFER INSTRUCTIONS: The patient is transferred to [place], [place] under the services of Dr. Lane. MEDICATIONS AT TIME OF TRANSFER: Plavix 75 mg p.o. daily Coated Aspirin 81 mg p.o. daily Cozaar 50 mg twice a day Ziac 5-6.25 mg p.o. daily Procardia XL 30 mg p.o. b.i.d. Catapres 0.2 mg p.o. b.i.d. The patient has been started on Cardene drip 5 mg/min. The antihypertensive medication will be adjusted accordingly. The patient has received intermittently 1 mg IV Ativan, Xanax 0.5, Vistaril, confusion. NEW PRESCRIPTIONS: None DIET INSTRUCTIONS: Heart Healthy as tolerated. ACTIVITY: Bedrest SMOKING: N/A DISEASE SPECIFIC EDUCATION: The patient is confused. is agreeable to transfer of the patient. HOSPITAL COURSE: 83-year-old white male hospitalized on 07/21/18 with nausea, vomiting, dizziness. On further workup the patient had acute infarct involving brainstem/ left paramidline kermit. The patient's symptoms correlated with it. The patient's mental status at times was clear, periods of confusion but for the past 24 hours the patient has been confused and restless. He is moving all extremities. Blood pressure seems to be labile, systolic fluctuating from 130 to 210. He has been treated with different antihypertensive medication with some response. He has no evidence of any coronary insufficiency or congestive heart failure. He has been given IV fluids for his hyponatremia which started out at 123 sodium. On the day of discharge, the patient's sodium was 128. He had been given 70 cc of NS/hr. His oral intake is poor for the past 36 hours. The patient had echocardiogram scheduled and renal flow studies to rule out renal artery stenosis which were postponed because of patient's restlessness and confusion. Considering the patient's deterioration of mental status and difficult to control the blood pressure with history of acute CVA, the patient was [facility]. The case was discussed with the Director of Hospitalist Program and the patient was accepted. LABS: Hemoglobin 15.4, hematocrit 41, WBC 13,000, normal differential. Creatinine 0.6 , BUN 13, potassium 3.7, glucose 123. A1C 5.2. Last non HDL 154 on 04/30/18. 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 CT angiogram of carotids showed left internal carotid 80% with open posterior circulation involving vertebral arteries. ADDENDUM: The patient is also on Lipitor - started on Lipitor 20 mg p.o. daily. TIME SPENT: More than 60 minutes. MTDD
--- NOTE | 2018-07-24 10:42 | PN ---
CODING FOR BILLING 07/21/18 LEVEL 5 07/22/18 EXTENSIVE 07/23/18 INTERMEDIATE 07/24/18 DISCHARGE MTDD
--- NOTE | 2018-07-24 10:49 | PN ---
DATE OF SERVICE: 07/24/18 - DISCHARGE NOTE SUBJECTIVE: 83-year-old white male hospitalized with acute CVA. His mental status has deteriorated. He is more confused and restless. Ativan, Xanax, Vistaril hasn't helped much. PHYSICAL EXAMINATION: GENERAL: Confusion. VITAL SIGNS: Temperature 98, pulse 88, respiratory rate 26, BP 188 systolic manually. Pulse ox 97% on room air. HEENT: Head normocephalic, atraumatic. Eyes: Extraocular muscles are intact. Pupils are equal, round and reactive to light and accommodation. Ears: No lesions. Nose appeared normal. Throat: No exudate or erythema. NECK: Supple. No JVD, no carotid bruit. No lymphadenopathy or thyromegaly. LUNGS: Decreased breath sounds but clear to auscultation. Percussion note normal. Chest symmetrical. HEART: S1, S2, no S3. No murmurs. No cyanosis or clubbing. No ascites. Pulses: Dorsalis pedis and posterior tibial pulses +1 to +2 both sides. ABDOMEN: Soft. Nontender. Bowel sounds active. No CVA tenderness. No mass felt. EXTREMITIES: No edema. Full range of motion of all extremities, equal. NEUROLOGIC: No focal deficit. Cranial nerves II through XII are grossly intact. No headache, no double vision or headache. SKIN: Not dry. Intact. Turgor - normal. LYMPHATIC: No palpable lymph nodes/no lymphedema. MUSCULOSKELETAL: Normal joints with no swelling. Muscle tone is normal. LABS: Hemoglobin 15.4, hematocrit 41, WBC 13,000, normal differential. Creatinine 0.6 , BUN 13. ASSESSMENT: 1. ENCEPHALOPATHY LIKELY HYPERTENSIVE/CVA RELATED 2. ACUTE PONTINE INFARCT LIKELY LACUNAR 3. LEFT CAROTID ARTERY STENOSIS 80% 4. DYSLIPIDEMIA 5. HYPERTENSION 6. COPD TIME SPENT: More than 30 minutes. Plan and coordination of the patient's care discussed in the presence of nurse. SNEHAL
[2018-07-24 10:59] VITALS: BP 202/103
--- NOTE | 2018-07-24 11:41 | PN ---
DATE OF SERVICE: 07/23/18 SUBJECTIVE: The patient was carrying on the conversation normally, able to recollect things without much difficulty. The patient was explained about the diagnosis in detail that he had demarcus infarct likely lacunar. Systolic blood pressure is 145. The patient still has fluctuations with systolic blood pressure reaching up to 170/180. The patient will be taken off Norvasc and put on Procardia XL 30 mg twice a day. Continue the rest of the medications, Cozaar, Ziac and Clonidine as before. REVIEW OF SYSTEMS: CONSTITUTIONAL: No night sweats. No fatigue, malaise, lethargy. No fever or chills. HEENT: Eyes: No visual changes. No eye pain. No eye discharge. ENT: No runny nose. No epistaxis. No sinus pain. No sore throat. No odynophagia. No congestion. RESPIRATORY: No cough, no congestion. No hemoptysis. No shortness of breath. CARDIOVASCULAR: No angina symptoms. No CHF symptoms. No atypical chest pain for CAD. No palpitations. No orthopnea. GASTROINTESTINAL: Positive for mild nausea. No abdominal pain. No vomiting. No diarrhea or constipation. No hematemesis. No hematochezia. GENITOURINARY: No urgency. No frequency. No dysuria. No hematuria. No obstructive symptoms. No discharge. No pain. No significant abnormal bleeding. MUSCULOSKELETAL: No musculoskeletal pain; no joint swelling. NEUROLOGICAL: No headache. No neck pain. No syncope. No seizures. No dizziness. PSYCHIATRIC: Not anxious. No depression. No suicidal thoughts. No homicidal thoughts. SKIN: No rash. No lesions. No wounds. ENDOCRINE: No unexplained weight loss. No weight gain. HEMATOLOGIC/LYMPHATIC: No anemia. No purpura. No petechiae. No prolonged or excessive bleeding. No palpable lymph nodes. PHYSICAL EXAMINATION: GENERAL: The patient is oriented to time, place and person. HEENT: Head normocephalic, atraumatic. Eyes: Extraocular muscles are intact. Pupils are equal, round and reactive to light and accommodation. Ears: No lesions. Nose appeared normal. Throat: No exudate or erythema. NECK: Supple. No JVD, no carotid bruit. No lymphadenopathy or thyromegaly. LUNGS: Clear to auscultation. Percussion note normal. Chest symmetrical. HEART: S1, S2, no S3. No murmurs. No cyanosis or clubbing. No ascites. Pulses: Dorsalis pedis and posterior tibial pulses +1 to +2 both sides. ABDOMEN: Soft. Nontender. Bowel sounds active. No CVA tenderness. No mass felt. EXTREMITIES: No edema. Full range of motion of all extremities, equal. NEUROLOGIC: Positive for difficulty walking and balance initially, able to walk to the bathroom with help. He takes a few steps without help. No focal deficit. Cranial nerves II through XII are grossly intact. No headache, no double vision or headache. SKIN: Not dry. Intact. Turgor - normal. LYMPHATIC: No palpable lymph nodes/no lymphedema. MUSCULOSKELETAL: Normal joints with no swelling. Muscle tone is normal. ASSESSMENT: 1. PONTINE STROKE INVOLVING BRAINSTEM AREA LIKELY LACUNAR INFARCT. 2. CONFUSION COULD BE FROM STROKE AND/OR HYPERTENSIVE ENCEPHALOPATHY. 3. SEVERE HYPERTENSION. 4. 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 5. DYSLIPIDEMIA. PLAN: 1. Educate the patient about stroke. 2. Strongly advised to take the Statin, should be started. 3. Continue Lovenox and aspirin. 4. Continue the rest of the medications. 5. The change in Procardia 30 mg twice a day. 6. D/C Norvasc. 7. Continue Cozaar 50 mg twice a day. 8. Clonidine 0.1 mg twice a day. 9. Ziac 5/6.25 mg daily. The patient's is in the room and explained about the diagnosis in detail. The patient underwent CT angiogram of the neck, carotid arteries and branches. The report is pending. Prognosis is guarded. TIME SPENT: More than 30 minutes. Plan and coordination of the patient's care discussed in the presence of nurse. SNEHAL
[2018-07-24] MEDS ORDERED: LIPITOR PO SCH (21:00)
== END 2018-07-24 11:14 | disposition short-term general hospital (02) | DRG 304 ==
LOC: ED 12:00 → SCU 14:40
PROVIDERS: ADMIT Internal Medicine; ATTEND Internal Medicine
DX: I16.0 Hypertensive urgency (principal); I61.3 Nontraumatic intracerebral hemorrhage in brain stem; G93.40 Encephalopathy, unspecified; I25.2 Old myocardial infarction; R45.0 Nervousness; R41.0 Disorientation, unspecified; R42 Dizziness and giddiness; E78.5 Hyperlipidemia, unspecified; F17.211 Nicotine dependence, cigarettes, in remission; J44.9 Chronic obstructive pulmonary disease, unspecified; J98.4 Other disorders of lung
CPT/HCPCS: 36415; 80053; 80061; 81001; 82150; 82550; 83690; 84443; 84484; 85025; 85651; 86617; 86757; 93005; 93010; 99223; 99232; 99233; 99239; 99284

== ENCOUNTER 2018-08-05 19:10 | Inpatient (IN) | payer OTHER ==
[2018-08-05 20:09] VITALS: BMI 24.7
[2018-08-05] MEDS ORDERED: TYLENOL PO PRN (21:16)
[2018-08-05] MEDS ORDERED: MILK OF MAGNESIA PO PRN (21:17)
[2018-08-05] MEDS ORDERED: NON-FORMULARY MEDICATION (Amlodipine Besylate [Norvasc] 10 MG) PO SCH (21:30)
[2018-08-05] MEDS ORDERED: NON-FORMULARY MEDICATION (Atorvastatin Calcium [Lipitor] 40 MG) PO SCH (21:30)
[2018-08-05] MEDS ORDERED: LIPITOR ONE (21:51)
[2018-08-05] MEDS ORDERED: NORVASC ONE (21:51)
[2018-08-05] MEDS: CATAPRES PO SCH (21:59)
[2018-08-06] MEDS: CATAPRES PO SCH ×3 (08:48→20:29)
[2018-08-06] MEDS: ASPIRIN EC PO SCH (08:49)
[2018-08-06] MEDS: COZAAR PO SCH (08:50)
[2018-08-06] MEDS: PLAVIX PO SCH (08:50)
[2018-08-06] MEDS ORDERED: NON-FORMULARY MEDICATION (Losartan Potassium 50 MG) PO SCH (09:00)
[2018-08-06] MEDS ORDERED: ASPIRIN EC PO SCH (09:00)
[2018-08-06] MEDS ORDERED: FLOMAX PO SCH (09:00)
--- NOTE | 2018-08-06 10:07 | RS.PTINEVL ---
Subjective - Patient information Date of Evaluation: 08/06/18 Date of Arrival on Unit: 08/05/18 Admitted From:: Facility Transfer (transferred from [facility] to Swing bed) Diagnosis: L pontine stroke, encephalopathy Usual Living Arrangement: With Spouse Living Arrangement Comments: at home with spouse Home Environment: House, Stairs (few), No rail (There is a rail on back deck, usually use front entrance.) Medical History: Hypertension, Cancer (skin) Medical History Comments:: NE, B carotid artery stenosis, Surgical History Comments:: hernia repair, lesion removed from eyelid, Medications: see chart Subjective Information/ Patient Comments:: pt states that he is not hurting, does not wish to use rwx. pt states he was not using rwx at [facility], however reports pt was not up much while at [facility]. - Level of function Prior to this admission, the patient could do the following:: Independent Selfcare, Independent ADL's, Independent Ambulation, Drive Current Level of Function: Partially Dependent Current Equipment Used at Home: none Interventions - Objective Patient Orientation: Person, Place Range of Motion - ROM Right Upper Extremity AROM: WFL's Left Upper Extremity AROM: WFL's Right Lower Extremity AROM: WFL's Left Lower Extremity AROM: WFL's Muscle Strength - Muscle Strength Right Upper Extremity Strength: Mild Weakness (grossly 4/5) Left Upper Extremity Strength: Mild Weakness (grossly 4/5) Right Lower Extremity Strength: Mild Weakness (hip flex 4-/5, knee flex/ext 4/5 , ankle Df/PF 4/5) Left Lower Extremity Strength: Mild Weakness (hip flex 4-/5, knee flex/ext 4/5, ankle Df/PF 4/5) Sensation - Sensation Right Upper Extremity Sensation: Intact/Normal Left Upper Extremity Sensation: Intact/Normal Right Lower Extremity Sensation: Intact/Normal Left Lower Extremity Sensation: Intact/Normal Palpation Palpation Findings: None/Normal Balance - Sitting Balance and Reactions Static Sitting Balance: Good Dynamic Sitting Balance: Fair - Standing Balance and Reactions Static Standing Balance: Poor Dynamic Standing Balance: Poor Standing Equilibrium Reactions: Delayed Left, Delayed Right Standing Protective Reactions: Delayed Left, Delayed Right - Comments Balance Assessment Comments: Tinetti score: 15/28 Functional Mobility - Bed Mobility Rolling R/L: CGA Scooting: CGA Supine to Sit: Min Assist Sit to Supine: CGA - Transfers Sit to Stand: Min Assist Stand to Sit: Min Assist - Safety Awareness Safety Awareness: Poor NATALI INDEX SCORE: 41 Ambulation - Ambulation Assistive Device Used: Rolling Walker Orthotic/Prosthetic Device: No Distance: 20ft Assistance needed with Ambulation: CGA, Min Assist, 1 person assist Gait Deviations: Forward posture, Short stride, Deviates from path Ambulation Comments: pt amb with increased lat sway and flexed posture as well as decreased step length. Feel pt would benefit from use of AD however pt refuses this am. Will encourage use of AD again this pm. Factors Affecting Ambulation: Decreased Balance, Weakness, Decreased Coordination, Decreased Safety, Cognitive Status, Limited Endurance Treatment time - Units charged ADL: 1 (ther act) - Time with patient Length of Evaluation: 19 Total treatment time: 32 Patient Education - Education Patient Education: Activity Modification, Education of Plan of Care Teaching Recipient: Patient, Family Teaching Methods: Discussion Comments: discussion with pt and benefits of use of AD. in agreement, pt not receptive this am. Assessment - Assessment Problem List:: Decreased level of function, Requires training/education, Decreased safety/Risk of falls, Weakness, Cognitive status limits abilities Rehab Potential: Good Further Therapy Indicated?: Yes Candidate for Swing Bed for Therapy Services?: pt is a swing bed patient Evaluation Complexity: HISTORY: Medium (CVA, encephalopathy, HTN, ), EXAM OF BODY SYSTEMS: Medium (balance, gait, transfers, strength, cognition), CLINICAL PRESENTATION: Medium (evolving), CLINICAL DECISION MAKING: Medium Short Term Goals GOAL #1: pt independent with positioning in bed. Goal to be met by: 08/11/18 GOAL #2: Transfer sup to/from sit SBA sit to/from stand CGA Goal to be met by: 08/13/18 GOAL #3: pt amb with AAD 100ft with no LOB with CGA x 1 Goal to be met by: 08/13/18 GOAL #4: Improve dyn stand balance as noted by tinetti score Goal to be met by: 08/13/18 GOAL #5: Improve BLE strength 4 to 4+/5 Goal to be met by: 08/13/18 [facility] Goals GOAL #1: Transfer sup to/from sit independently, sit to/from stand SBA Goal to be met by: 08/16/18 GOAL #2: pt amb functional household distances with AAD with no LOB SBA Goal to be met by: 08/16/18 GOAL #3: Ascend/descend 2 steps without HR CGA to enter/exit home Goal to be met by: 08/16/18 Plan Plan of Care: Therapeutic EX, Therapeutic Activity Other:: gait training Frequency of Treatment: 1-2 X day, as tolerated Duration of Treatment: 10 days Anticipated Discharge Destination: Home Treatment Diagnosis (ICD 10 Codes): R 26.0 ataxic gait. R 26.81 balance impaired. M62.81 weakness Has the Physician been added for Co-signature?: Yes
--- NOTE | 2018-08-06 13:04 | PCM.PROG ---
Attending Provider: ATTENDING PROVIDER: Dr. EVELIO DUONG DATE OF SERVICE: 08/06/18 SUBJECTIVE: This 83 year old WHITE/ M was hospitalized 08/05/18 in swing bed. The patient is diagnosed with left pontine CVA, encephalopathy, combination of hypertension and CVA. He has decline in function with daily activities of living and intermediate activity of daily living due to CVA. He is here for PT/ OT. This morning the patient is sleepy and confused. Yesterday, he was oriented to time, place and person and is hospitalized in the swing bed. REVIEW OF SYSTEMS: CONSTITUTIONAL: No night sweats. No fatigue, malaise, lethargy. No fever or chills. HEENT: Eyes: No visual changes. No eye pain. No eye discharge. ENT: No runny nose. No epistaxis. No sinus pain. No odynophagia. No congestion. RESPIRATORY: No cough, no congestion. No hemoptysis. No shortness of breath. CARDIOVASCULAR: No angina symptoms. No CHF symptoms. No atypical chest pain for CAD. No palpitations. No PND, no orthopnea.. GASTROINTESTINAL: No abdominal pain. No nausea or vomiting. No diarrhea or constipation. No hematemesis. No hematochezia. GENITOURINARY: No urgency. No frequency. No dysuria. No hematuria. No obstructive symptoms. No discharge. No pain. No significant abnormal bleeding. MUSCULOSKELETAL: No musculoskeletal pain; no joint swelling. NEUROLOGICAL: Awake, alert, confused. No headache. No neck pain. No syncope. No seizures. No dizziness. PSYCHIATRIC: Not anxious. No depression. No suicidal thoughts. No homicidal thoughts. SKIN: No rash. No lesions. No wounds. ENDOCRINE: No unexplained weight loss. No weight gain. HEMATOLOGIC/LYMPHATIC: No anemia. No purpura. No petechiae. No prolonged or excessive bleeding. No palpable lymph nodes. PHYSICAL EXAMINATION: GENERAL: The patient is awake, alert and confused, lying in bed in no distress. VITAL SIGNS: Temperature 98.6 F, Pulse 73, Respiratory Rate 18, BP 111/58, Pulse Ox 96% HEENT: Face is symmetric. Head normocephalic, atraumatic. Eyes: Extraocular muscles are intact. Pupils are equal, round and reactive to light and accommodation. Ears: No lesions. Nose appeared normal. Throat: No exudate or erythema. NECK: Supple. No JVD, no carotid bruit. No lymphadenopathy or thyromegaly. LUNGS: Decreased breath sounds. Clear to auscultation. Percussion note normal. Chest symmetrical. HEART: S1, S2, no S3. No murmurs. No cyanosis or clubbing. No ascites. Pulses: Dorsalis pedis and posterior tibial pulses +1 to +2 both sides. ABDOMEN: Soft. Non-tender. Bowel sounds active. No CVA tenderness. No mass felt. EXTREMITIES: No edema. Full range of motion of all extremities, equal. Gait is unsteady. NEUROLOGIC: No focal deficit. Cranial nerves II through XII are grossly intact. No headache, no double vision or headache. SKIN: Warm and dry. Intact. Turgor-normal. LYMPHATIC: No palpable lymph nodes/no lymphedema. MUSCULOSKELETAL: Normal joints with no swelling. Muscle tone is normal. LAB REVIEW: 08/06/18 05:00 08/06/18 05:00 08/06/18 05:00: Sodium 128.0 L, Potassium 3.84, Chloride 98.6, Carbon Dioxide 22.5, Anion Gap 10.74, BUN 13.4, Creatinine 0.62, Estimated GFR (MDRD) 125.00, BUN/Creatinine Ratio 21.61, Glucose 98.8, Calcium 8.28 L, Total Bilirubin 1.19, AST 25.5, ALT 31.2, Alkaline Phosphatase 38.7 L, Total Protein 6.30, Albumin 3.45 L, Globulin 2.85, Albumin/Globulin Ratio 1.21 08/06/18 05:00: WBC 7.05, RBC 3.52 L, Hgb 12.0 L, Hct 32.2 L, MCV 91.5, MCH 34.1 H, MCHC 37.3 H, RDW Coeff of Renetta 11.9, Plt Count 281, Immature Gran % (Auto ) 0.1, Neut % (Auto) 66.9, Lymph % (Auto) 17.7, Harper % (Auto) 10.8 H, Eos % ( Auto) 3.8, Baso % (Auto) 0.7, Immature Gran # (Auto) 0.0, Neut # (Auto) 4.7, Lymph # (Auto) 1.3, Harper # (Auto) 0.8, Eos # (Auto) 0.3, Baso # (Auto) 0.1 08/05/18 21:25: Sodium 127.7 L, Potassium 3.88, Chloride 98.9, Carbon Dioxide 21.7 L, Anion Gap 10.98, BUN 11.3, Creatinine 0.65, Estimated GFR (MDRD) 118.00 , BUN/Creatinine Ratio 17.38, Glucose 111.2 H, Calcium 8.72, Total Bilirubin 1.12, AST 25.9, ALT 33.7, Alkaline Phosphatase 49.7 L, Total Protein 6.60, Albumin 3.67, Globulin 2.93, Albumin/Globulin Ratio 1.25 08/05/18 21:25: WBC 8.10, RBC 3.72 L, Hgb 12.5 L, Hct 33.7 L, MCV 90.6, MCH 33.6 H, MCHC 37.1 H, RDW Coeff of Renetta 11.7, Plt Count 300, Immature Gran % (Auto ) 0.4, Neut % (Auto) 74.6, Lymph % (Auto) 13.3, Harper % (Auto) 9.0, Eos % (Auto) 2.3, Baso % (Auto) 0.4, Immature Gran # (Auto) 0.0, Neut # (Auto) 6.0, Lymph # ( Auto) 1.1, Harper # (Auto) 0.7, Eos # (Auto) 0.2, Baso # (Auto) 0.0 ASSESSMENT: 1. 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 2. Encephalopathy, combination of hypertension and CVA which happened a couple of weeks ago with the CVA. 3. History of MD with CAD. 4. History of hypertension. 5. Dyslipidemia. 6. BPH. PLAN: 1. PT/OT evaluation/plan 2. Labs every other day, CBC, CMP 3. TSH in the a.m. 4. Speech therapy consult 5. Bladder scan Plan and coordination of the patient's care discussed in the presence of Senior Courtroom Clerk and nurse. CONDITION: Stable SCRIBED BY: LUIS ARMANDO PRATT Impress Associate scribed while in presence of service performed by Dr. EVELIO DUONG on 08/06/18 ([id number])
--- NOTE | 2018-08-06 13:42 | HP ---
DATE OF SERVICE: 08/06/18 (admitted 08/05/18) HISTORY OF PRESENT ILLNESS: This 83 year old WHITE/ M was hospitalized 08/05/18 in swing bed. The patient is diagnosed with left pontine CVA, encephalopathy, combination of hypertension and CVA. He has decline in function with daily activities of living and intermediate activity of daily living due to CVA. He is here for PT/ OT. This morning the patient is sleepy and confused. Yesterday he was oriented to time, place and person and is hospitalized in the swing bed. PAST MEDICAL HISTORY: Dyslipidemia for which he refuses statin treatment Hypertension Osteoarthritis Previous smoker PAST SURGICAL HISTORY: None REVIEW OF SYSTEMS: CONSTITUTIONAL: No night sweats. No fatigue, malaise, lethargy. No fever or chills. HEENT: Eyes: No visual changes. No eye pain. No eye discharge. ENT: No runny nose. No epistaxis. No sinus pain. No odynophagia. No congestion. RESPIRATORY: No cough, no congestion. No hemoptysis. No shortness of breath. CARDIOVASCULAR: No angina symptoms. No CHF symptoms. No atypical chest pain for CAD. No palpitations. No PND, no orthopnea.. GASTROINTESTINAL: No abdominal pain. No nausea or vomiting. No diarrhea or constipation. No hematemesis. No hematochezia. GENITOURINARY: No urgency. No frequency. No dysuria. No hematuria. No obstructive symptoms. No discharge. No pain. No significant abnormal bleeding. MUSCULOSKELETAL: No musculoskeletal pain; no joint swelling. NEUROLOGICAL: Awake, alert, confused. No headache. No neck pain. No syncope. No seizures. No dizziness. PSYCHIATRIC: Not anxious. No depression. No suicidal thoughts. No homicidal thoughts. SKIN: No rash. No lesions. No wounds. ENDOCRINE: No unexplained weight loss. No weight gain. HEMATOLOGIC/LYMPHATIC: No anemia. No purpura. No petechiae. No prolonged or excessive bleeding. No palpable lymph nodes. PERSONAL/FAMILY/SOCIAL HISTORY: ; lives with . Denies any alcohol or illicit drug use. MEDICATIONS: (HOME) Aspirin 325 mg p.o. daily Losartan 50 mg p.o. daily Clopidogrel 75 mg p.o. daily Amlodipine 10 mg p.o. bedtime Tamsulosin 0.4 mg p.o. daily Atorvastatin 40 mg p.o. edtime Tylenol 650 mg p.o. q.4h p.r.n. Milk of Magnesia 30 mL p.o. daily p.r.n. Clonidine 0.1 mg p.o. t.i.d. ALLERGIES: NKDA PHYSICAL EXAMINATION: GENERAL: The patient is awake, alert and oriented, lying in bed in no distress. VITAL SIGNS: Temperature 98.6 F, Pulse 73, Respiratory Rate 18, BP 111/58, Pulse Ox 96% HEENT: Face is symmetric. Head normocephalic, atraumatic. Eyes: Extraocular muscles are intact. Pupils are equal, round and reactive to light and accommodation. Ears: No lesions. Nose appeared normal. Throat: No exudate or erythema. NECK: Supple. No JVD, no carotid bruit. No lymphadenopathy or thyromegaly. LUNGS: Decreased breath sounds. Clear to auscultation. Percussion note normal. Chest symmetrical. HEART: S1, S2, no S3. No murmurs. No cyanosis or clubbing. No ascites. Pulses: Dorsalis pedis and posterior tibial pulses +1 to +2 both sides. ABDOMEN: Soft. Non-tender. Bowel sounds active. No CVA tenderness. No mass felt. EXTREMITIES: No edema. Full range of motion of all extremities, equal. Gait is unsteady. NEUROLOGIC: No focal deficit. Cranial nerves II through XII are grossly intact. No headache, no double vision or headache. SKIN: Warm and dry. Intact. Turgor-normal. LYMPHATIC: No palpable lymph nodes/no lymphedema. MUSCULOSKELETAL: Normal joints with no swelling. Muscle tone is normal. LAB REVIEW: 08/06/18 05:00 08/06/18 05:00 08/06/18 05:00: Sodium 128.0 L, Potassium 3.84, Chloride 98.6, Carbon Dioxide 22.5, Anion Gap 10.74, BUN 13.4, Creatinine 0.62, Estimated GFR (MDRD) 125.00, BUN/Creatinine Ratio 21.61, Glucose 98.8, Calcium 8.28 L, Total Bilirubin 1.19, AST 25.5, ALT 31.2, Alkaline Phosphatase 38.7 L, Total Protein 6.30, Albumin 3.45 L, Globulin 2.85, Albumin/Globulin Ratio 1.21 08/06/18 05:00: WBC 7.05, RBC 3.52 L, Hgb 12.0 L, Hct 32.2 L, MCV 91.5, MCH 34.1 H, MCHC 37.3 H, RDW Coeff of Renetta 11.9, Plt Count 281, Immature Gran % (Auto ) 0.1, Neut % (Auto) 66.9, Lymph % (Auto) 17.7, [place] % (Auto) 10.8 H, Eos % ( Auto) 3.8, Baso % (Auto) 0.7, Immature Gran # (Auto) 0.0, Neut # (Auto) 4.7, Lymph # (Auto) 1.3, [place] # (Auto) 0.8, Eos # (Auto) 0.3, Baso # (Auto) 0.1 08/05/18 21:25: Sodium 127.7 L, Potassium 3.88, Chloride 98.9, Carbon Dioxide 21.7 L, Anion Gap 10.98, BUN 11.3, Creatinine 0.65, Estimated GFR (MDRD) 118.00 , BUN/Creatinine Ratio 17.38, Glucose 111.2 H, Calcium 8.72, Total Bilirubin 1.12, AST 25.9, ALT 33.7, Alkaline Phosphatase 49.7 L, Total Protein 6.60, Albumin 3.67, Globulin 2.93, Albumin/Globulin Ratio 1.25 08/05/18 21:25: WBC 8.10, RBC 3.72 L, Hgb 12.5 L, Hct 33.7 L, MCV 90.6, MCH 33.6 H, MCHC 37.1 H, RDW Coeff of Renetta 11.7, Plt Count 300, Immature Gran % (Auto ) 0.4, Neut % (Auto) 74.6, Lymph % (Auto) 13.3, [place] % (Auto) 9.0, Eos % (Auto) 2.3, Baso % (Auto) 0.4, Immature Gran # (Auto) 0.0, Neut # (Auto) 6.0, Lymph # ( Auto) 1.1, [place] # (Auto) 0.7, Eos # (Auto) 0.2, Baso # (Auto) 0.0 LAB REVIEW: 08/06/18 05:00 08/06/18 05:00 08/06/18 05:00: Sodium 128.0 L, Potassium 3.84, Chloride 98.6, Carbon Dioxide 22.5, Anion Gap 10.74, BUN 13.4, Creatinine 0.62, Estimated GFR (MDRD) 125.00, BUN/Creatinine Ratio 21.61, Glucose 98.8, Calcium 8.28 L, Total Bilirubin 1.19, AST 25.5, ALT 31.2, Alkaline Phosphatase 38.7 L, Total Protein 6.30, Albumin 3.45 L, Globulin 2.85, Albumin/Globulin Ratio 1.21 08/06/18 05:00: WBC 7.05, RBC 3.52 L, Hgb 12.0 L, Hct 32.2 L, MCV 91.5, MCH 34.1 H, MCHC 37.3 H, RDW Coeff of Renetta 11.9, Plt Count 281, Immature Gran % (Auto ) 0.1, Neut % (Auto) 66.9, Lymph % (Auto) 17.7, [place] % (Auto) 10.8 H, Eos % ( Auto) 3.8, Baso % (Auto) 0.7, Immature Gran # (Auto) 0.0, Neut # (Auto) 4.7, Lymph # (Auto) 1.3, [place] # (Auto) 0.8, Eos # (Auto) 0.3, Baso # (Auto) 0.1 08/05/18 21:25: Sodium 127.7 L, Potassium 3.88, Chloride 98.9, Carbon Dioxide 21.7 L, Anion Gap 10.98, BUN 11.3, Creatinine 0.65, Estimated GFR (MDRD) 118.00 , BUN/Creatinine Ratio 17.38, Glucose 111.2 H, Calcium 8.72, Total Bilirubin 1.12, AST 25.9, ALT 33.7, Alkaline Phosphatase 49.7 L, Total Protein 6.60, Albumin 3.67, Globulin 2.93, Albumin/Globulin Ratio 1.25 08/05/18 21:25: WBC 8.10, RBC 3.72 L, Hgb 12.5 L, Hct 33.7 L, MCV 90.6, MCH 33.6 H, MCHC 37.1 H, RDW Coeff of Renetta 11.7, Plt Count 300, Immature Gran % (Auto ) 0.4, Neut % (Auto) 74.6, Lymph % (Auto) 13.3, [place] % (Auto) 9.0, Eos % (Auto) 2.3, Baso % (Auto) 0.4, Immature Gran # (Auto) 0.0, Neut # (Auto) 6.0, Lymph # ( Auto) 1.1, [place] # (Auto) 0.7, Eos # (Auto) 0.2, Baso # (Auto) 0.0 ASSESSMENT: 1. 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 2. Encephalopathy, combination of hypertension and CVA which happened a couple of weeks ago with the CVA. 3. History of NH with CAD. 4. History of hypertension. 5. Dyslipidemia. 6. BPH. PLAN: 1. PT/OT evaluation/plan. 2. Labs every other day, CBC, CMP. 3. TSH. 4. Speech therapy consult. 5. Continue Aspirin, Losartan. 6. Amlodipine decrease to 5 mg at night one time dose. 7. Continue Lipitor, Clonidine, Clopidogrel and Tamsulosin. 8. Fall precautions. 9. Bladder scan q.8hr. Plan and coordination of the patient's care discussed in the presence of Public Health Internship and nurse. CONDITION: Stable SCRIBED BY: LUIS ARMANDO PRATT, Laborer [employer] scribed while in presence of service performed by Dr. EVELIO DUONG on 08/06/18 ([id number]) [facility]
[2018-08-06] MEDS: LIPITOR PO SCH (20:28)
[2018-08-06] MEDS: NORVASC PO SCH (20:29)
[2018-08-06] MEDS ORDERED: NORVASC PO SCH (21:00)
--- NOTE | 2018-08-07 09:11 | RS.BEDDYS ---
Subjective Number of treatment sessions: 1 Date of Evaluation: 08/06/18 Treatment Diagnosis: CVA Current Level of Function: This 83 year old male presents with confusion and risk for aspiration. He was admitted post left CVA with residual deficits with cognitive function. He was reported to have a puree diet texture with thin liquids. Current Diet: Puree with thin liquids. Current Subjective/complaints:: The patient had no reports or concerns. He was limited to speak and answer questions upon ADVERTISING OPERATIONS COORDINATOR request. Nursing reported confusion with his diet texture and wanted him to be assessed for safety with swallow function. Medical History Comments:: CVA, HTN Hx Home Medications: Refer to medications for complete current list. Patient's Goals: To consume safest and least restrictive diet. General Information - General Denture Type: Not Applicable Patient Orientation: Person Ability to Follow Directions: Fair Oral Expression Ability: Mild Impairment (limited verbal responses upon request from ADVERTISING OPERATIONS COORDINATOR. Primarily y/n) Oral-Facial Assessment - Face Facial Symmetry: Symmetrical Facial Movement: Controlled - Dental/Labial Teeth Characteristics: Missing, Broken, Spaces Teeth Comment: Poor dentition Lip Protrusion: Normal Lip Retraction: Normal Puff Cheeks: Normal - Lingual Protrusion: Normal Retraction: Normal Tip Lateralization: Normal Repeated Tip Lateralization: Normal Tip Elevation: Normal Repeated Tip Elevation: Normal Food Presentation - Solids Food Presented: Regular (Cracker) Behaviors/Comments: Pt was presented regular cracker texture. He fed self and consumed the entire cracker. He demonstrated mildly prolonged mastication, adequate bolus formation, no difficulty to initiate a swallow. He had mild oral stasis post swallow. He cleared texture from oral cavity with a liquid wash. No overt s/s of aspiration were noted. - Liquids Liquid Presented: Thin (Via straw and open cup) Behaviors/Comments: No overt s/s of aspiration. Minimal delay in laryngeal excursion. - Recommendations: Dysphagia Evaluation Dietary Recommendations: Normal Comments:: Regular diet texture with thin liquids. Dysphagia Swallow Precautions/Strategies: Sitting Upright (90 deg), Liquids from Straw Comments:: Pt to use safe swallow precautions and aspiration precuations with meals. He was noted with minimal impulsivity with PO intake. Decreased awareness with self-monitoring may increase risk for aspiration/penetration. No structrual deficits affecting swallowing function at this time. - Summary Dysphagia Evaluation Summary: Pt appears with cognitive deficits that may interferre with safe swallowing. He had minimal delay in laryngeal excursion, with minimal risk for aspriation/penetration. Poor dentition did not affect mastication skills. Further Therapy Indicated?: No Functional Reporting G Codes: Swallowing Current CI Discharge CI Severity Impairment Rationale: Poor dentition. hx of swallowing difficulty. Plan Duration of Treatment: One Time Treatment Frequency of Treatment: One time treatment Anticipated Discharge Destination: Home Comments: ADVERTISING OPERATIONS COORDINATOR recommends education with to increase awareness with monitoring during PO intake. Possible cognitive deficits interferre with self-monitoring and safety in the home environment. ADVERTISING OPERATIONS COORDINATOR recommends further cognitive testing if appropriate. - Treatment Code (1) Dysphagia Code(s): R13.10 - DYSPHAGIA, UNSPECIFIED
--- NOTE | 2018-08-07 09:36 | PCM.PROG ---
Attending Provider: ATTENDING PROVIDER: Dr. EVEILO DUONG This patient is seen with Fatoumata Hansen, Nurse Practitioner. DATE OF SERVICE: 08/07/18 SUBJECTIVE: This 83 year old WHITE/ M was hospitalized 08/05/18. The patient is resting comfortably. He is oriented to person. Oral intake has been poor. He is having significant post void residual requiring in and out cath. REVIEW OF SYSTEMS: CONSTITUTIONAL: Weakness. No night sweats. No malaise, lethargy. No fever or chills. HEENT: Eyes: No visual changes. No eye pain. No eye discharge. ENT: No runny nose. No epistaxis. No sinus pain. No odynophagia. No congestion. RESPIRATORY: No cough, no congestion. No hemoptysis. No shortness of breath. CARDIOVASCULAR: No angina symptoms. No CHF symptoms. No atypical chest pain for CAD. No palpitations. No orthopnea.. GASTROINTESTINAL: Decreased appetite. No abdominal pain. No nausea or vomiting. No diarrhea or constipation. No hematemesis. No hematochezia. GENITOURINARY: No urgency. No frequency. No dysuria. No hematuria. No obstructive symptoms. No discharge. No pain. No significant abnormal bleeding. MUSCULOSKELETAL: No musculoskeletal pain; no joint swelling. NEUROLOGICAL: Awake, alert, oriented to person, confused. No headache. No neck pain. No syncope. No seizures. No dizziness. PSYCHIATRIC: Not anxious. No depression. No suicidal thoughts. No homicidal thoughts. SKIN: No rash. No lesions. No wounds. ENDOCRINE: No unexplained weight loss. No weight gain. HEMATOLOGIC/LYMPHATIC: No anemia. No purpura. No petechiae. No prolonged or excessive bleeding. No palpable lymph nodes. PHYSICAL EXAMINATION: GENERAL: The patient is awake, alert, oriented to person lying in bed in no distress. VITAL SIGNS: Temperature 98.0 F, Pulse 89, Respiratory Rate 16, BP 111/65, Pulse Ox 98% HEENT: Head normocephalic, atraumatic. Eyes: Extraocular muscles are intact. Pupils are equal, round and reactive to light and accommodation. Ears: No lesions. Nose appeared normal. Throat: No exudate or erythema. NECK: Supple. No JVD, no carotid bruit. No lymphadenopathy or thyromegaly. LUNGS: Diminished breath sounds. Clear to auscultation. Percussion note normal. Chest symmetrical. HEART: S1, S2, no S3. No murmurs. No cyanosis or clubbing. No ascites. Pulses: Dorsalis pedis and posterior tibial pulses +1 to +2 both sides. ABDOMEN: Soft. Non-tender. Bowel sounds active. No CVA tenderness. No mass felt. EXTREMITIES: No edema. Full range of motion of all extremities, equal. NEUROLOGIC: No focal deficit. Cranial nerves II through XII are grossly intact. No headache, no double vision or headache. SKIN: Not dry. Intact. Turgor-normal. LYMPHATIC: No palpable lymph nodes/no lymphedema. MUSCULOSKELETAL: Normal joints with no swelling. Muscle tone is normal. LAB REVIEW: 08/06/18 05:00 08/06/18 05:00 08/06/18 05:00: TSH 4.340 ASSESSMENT: 1. Left pontine CVA. 2. Hypertensive encephalopathy. 3. Decline in function. 4. Hypertension. PLAN: 1. Continue PT/OT. 2. Increase Flomax to b.i.d. Plan and coordination of the patient's care discussed in the presence of Icer Machine Operator and nurse. CONDITION: Stable SCRIBED BY: LUIS ARMANDO PRATT Food Service Helper scribed while in presence of service performed by Dr. Duong/Fatoumata Hansen APRN on 08/07/18 ([id number])
[2018-08-07] MEDS: CATAPRES PO SCH ×3 (09:43→21:54)
[2018-08-07] MEDS: PLAVIX PO SCH (09:43)
[2018-08-07] MEDS: FLOMAX PO SCH ×2 (09:43→21:55)
[2018-08-07] MEDS: ASPIRIN EC PO SCH (09:43)
[2018-08-07] MEDS: COZAAR PO SCH (09:44)
--- NOTE | 2018-08-07 11:42 | RS.OTINEVL ---
Subjective - Patient information Date of Evaluation: 08/07/18 Date of Arrival on Unit: 08/05/18 Usual Living Arrangement: With Spouse Living Arrangement Comments: Pt lives in a house and has steps to get in his house. Pt lives with his . Home Environment: House Medical History: Hypertension, CVA/TIA Medical History Comments:: CVA, HTN, [place] in 1988, eye lid surgery, hemmorhoidectomy, umbilical hernia, Surgical History Comments:: hemmorhoidectomy Subjective Information/ Patient Comments:: "I am in here for a small stroke. I am just weak." - Level of function Prior to this admission, the patient could do the following:: Independent Selfcare, Independent ADL's, Independent Ambulation, Drive Abilities prior to this admission: Pt was living at home with his and was able to walk around independently. Current Level of Function: Independent Current Equipment Used at Home: none Pain Assessment - Pain Pain Score: 0 Interventions - Objective Patient Orientation: Person, Place, Situation Current Interventions: IV's Observation: Pt is weak and has weakness in his gait. Pt gets irritated quickly. Pt is not always willing to work with therapy. Pt was very willing to complete the OT evaluation. Interventions - ROM Right Upper Extremity AROM: Slight limitation Left Upper Extremity AROM: Slight limitation - Strength Right Upper Extremity Strength: Mild Weakness Left Upper Extremity Strength: Mild Weakness - Sensation Right Upper Extremity Sensation: Intact/Normal Left Upper Extremity Sensation: Intact/Normal Balance - Sitting Balance Static Sitting Balance: Good Dynamic Sitting Balance: Good - Standing Balance Static Standing Balance: Fair Dynamic Standing Balance: Fair ADL Skills - Self Feeding Self Feeding: Min Assist - Grooming Grooming: Min Assist - Dressing Dressing UE: Min Assist Dressing LE: Min Assist - Toilet Management Toileting Management: Min Assist Functional Mobility - Bed Mobility Rolling R/L: Independent Scooting: Independent - Transfers Sit to Stand: CGA Stand to Sit: CGA Stand Pivot Transfers: CGA - Ambulation Weight Bearing Status: FWB Assistive Device Used: Rolling Walker Assistance needed with Ambulation: CGA - Safety Awareness Safety Awareness: Fair NATALI INDEX SCORE: 41 Additional Treatment Performed - Additional units charged ADL: 15 - Time with patient Length of Evaluation: 28 Total treatment time: 43 Activities Do you enjoy playing games?: No Would you be interested in leaving your room for activities?: No Would you enjoy group activities?: No Do you have difficulty with your vision?: No What types of things do you enjoy doing? Any Hobbies?: Reads the paper. Patient Interests:: Reading Books/Magazines, Watching Television, Visiting/ Socializing Patient Education Patient Education: Education of diagnosis, Home Exercise Program, Education of Plan of Care Teaching Recipient: Patient Teaching Methods: Teach Back Method Used, Discussion Assessment Problem List:: Decreased level of function, Requires training/education, Decreased safety/Risk of falls, Weakness Rehab Potential: Good Further Therapy Indicated?: Yes Candidate for Swing Bed for Therapy Services?: yes Evaluation Complexity: HISTORY: Medium, EXAM OF BODY SYSTEMS: Medium, CLINICAL DECISION MAKING: Medium Short Term Goals - Goals GOAL 1: To Increase BUE strength to 4/5 Goal to be met by: 08/12/18 GOAL 2: To increase standing activity tolerance to 10 minutes. Goal to be met by: 08/12/18 GOAL 3: To increase indep. of self care to CGA. Goal to be met by: 08/13/18 Intermediate Goals GOAL 1: To Increase BUE strength to 4+/5 Goal to be met by: 08/20/18 GOAL 2: To increase standing activity tolerance to 15 minutes. Goal to be met by: 08/20/18 GOAL 3: To increase independence of self care to Independent. Goal to be met by: 08/20/18 Plan Plan of Care: Therapeutic EX, Neuromuscular Re-Educ, Therapeutic Activity, Self- Care/Home Management Frequency of Treatment: 1-2 X day, as tolerated Duration of Treatment: 1 Week Anticipated Discharge Destination: Home Treatment Diagnosis (ICD 10 Codes): M62.81 muscle weakness, Z74.1 Need for assistance with personal care Has the Physician been added for Co-signature?: Yes
[2018-08-07] MEDS: MYLANTA SUSP PO PRN (13:59)
[2018-08-07] MEDS: LIPITOR PO SCH (21:54)
[2018-08-07] MEDS: NORVASC PO SCH (21:55)
[2018-08-08] MEDS: CATAPRES PO SCH ×3 (08:34→21:47)
[2018-08-08] MEDS: PLAVIX PO SCH (08:35)
[2018-08-08] MEDS: COZAAR PO SCH (08:35)
[2018-08-08] MEDS: ASPIRIN EC PO SCH (08:35)
[2018-08-08] MEDS: FLOMAX PO SCH ×2 (08:36→21:47)
[2018-08-08] MEDS: NORVASC PO SCH (21:47)
[2018-08-08] MEDS: LIPITOR PO SCH (21:47)
--- NOTE | 2018-08-09 09:01 | PCM.PROG ---
Attending Provider: ATTENDING PROVIDER: Dr. EVELIO DUONG This patient is seen with Fatoumata Hansen, Nurse Practitioner. DATE OF SERVICE: 08/09/18 SUBJECTIVE: This 83 year old WHITE/ M was hospitalized 08/05/18. The patient is lying in bed, resting comfortably. He has been doing better with PT/OT. He is still requiring in and out catheterization for residual urine. REVIEW OF SYSTEMS: CONSTITUTIONAL: Weakness. No night sweats. No malaise, lethargy. No fever or chills. HEENT: Eyes: No visual changes. No eye pain. No eye discharge. ENT: No runny nose. No epistaxis. No sinus pain. No odynophagia. No congestion. RESPIRATORY: No cough, no congestion. No hemoptysis. No shortness of breath. CARDIOVASCULAR: No angina symptoms. No CHF symptoms. No atypical chest pain for CAD. No palpitations. No orthopnea.. GASTROINTESTINAL: No abdominal pain. No nausea or vomiting. No diarrhea or constipation. No hematemesis. No hematochezia. GENITOURINARY: No urgency. No frequency. No dysuria. No hematuria. No obstructive symptoms. No discharge. No pain. No significant abnormal bleeding. MUSCULOSKELETAL: No musculoskeletal pain; no joint swelling. NEUROLOGICAL: Awake, alert, oriented to time, place and person. No headache. No neck pain. No syncope. No seizures. No dizziness. PSYCHIATRIC: Not anxious. No depression. No suicidal thoughts. No homicidal thoughts. SKIN: No rash. No lesions. No wounds. ENDOCRINE: No unexplained weight loss. No weight gain. HEMATOLOGIC/LYMPHATIC: No anemia. No purpura. No petechiae. No prolonged or excessive bleeding. No palpable lymph nodes. PHYSICAL EXAMINATION: GENERAL: The patient is awake, alert and oriented, lying in bed in no distress. VITAL SIGNS: Temperature 98.7 F, Pulse 65, Respiratory Rate 18, BP 102/55, Pulse Ox 98% HEENT: Head normocephalic, atraumatic. Eyes: Extraocular muscles are intact. Pupils are equal, round and reactive to light and accommodation. Ears: No lesions. Nose appeared normal. Throat: No exudate or erythema. NECK: Supple. No JVD, no carotid bruit. No lymphadenopathy or thyromegaly. LUNGS: Clear to auscultation. Percussion note normal. Chest symmetrical. HEART: S1, S2, no S3. No murmurs. No cyanosis or clubbing. No ascites. Pulses: Dorsalis pedis and posterior tibial pulses +1 to +2 both sides. ABDOMEN: Soft. Non-tender. Bowel sounds active. No CVA tenderness. No mass felt. EXTREMITIES: No edema. Full range of motion of all extremities, equal. NEUROLOGIC: No focal deficit. Cranial nerves II through XII are grossly intact. No headache, no double vision or headache. SKIN: Not dry. Intact. Turgor-normal. LYMPHATIC: No palpable lymph nodes/no lymphedema. MUSCULOSKELETAL: Normal joints with no swelling. Muscle tone is normal. LAB REVIEW: 08/08/18 05:30 08/08/18 05:30 ASSESSMENT: 1. Left pontine CVA. 2. Hypertensive encephalopathy. 3. Decline in function. 4. Hypertension. 5. Generalized weakness PLAN: 1. Decrease Clonidine to b.i.d. Plan and coordination of the patient's care discussed in the presence of Head Cleaning Porter and nurse. CONDITION: Stable SCRIBED BY: LUIS ARMANDO PRATT Motor Vehicle Salesperson scribed while in presence of service performed by Dr. Duong/Fatoumata Hansen APRN on 08/09/18 ([id number])
[2018-08-09] MEDS: ASPIRIN EC PO SCH (09:11)
[2018-08-09] MEDS: FLOMAX PO SCH (09:12)
[2018-08-09] MEDS: CATAPRES PO SCH ×2 (09:12→20:50)
[2018-08-09] MEDS: COZAAR PO SCH (09:12)
[2018-08-09] MEDS: PLAVIX PO SCH (09:12)
[2018-08-09] MEDS: MEGACE PO SCH (12:44)
--- NOTE | 2018-08-09 13:44 | PN ---
DATE OF SERVICE: 08/07/18 SUBJECTIVE: The patient was seen and examined today. The patient is doing much better, oriented to time, place and person. REVIEW OF SYSTEMS: CONSTITUTIONAL: No night sweats. No fatigue, malaise, lethargy. No fever or chills. HEENT: Eyes: No visual changes. No eye pain. No eye discharge. ENT: No runny nose. No epistaxis. No sinus pain. No sore throat. No odynophagia. No congestion. RESPIRATORY: No cough, no congestion. No hemoptysis. No shortness of breath. CARDIOVASCULAR: No angina symptoms. No CHF symptoms. No atypical chest pain for CAD. No palpitations. No orthopnea. GASTROINTESTINAL: No abdominal pain. No nausea or vomiting. No diarrhea or constipation. No hematemesis. No hematochezia. GENITOURINARY: No urgency. No frequency. No dysuria. No hematuria. No obstructive symptoms. No discharge. No pain. No significant abnormal bleeding. MUSCULOSKELETAL: No musculoskeletal pain; no joint swelling. NEUROLOGICAL: No headache. No neck pain. No syncope. No seizures. No dizziness. PSYCHIATRIC: Not anxious. No depression. No suicidal thoughts. No homicidal thoughts. SKIN: No rash. No lesions. No wounds. ENDOCRINE: No unexplained weight loss. No weight gain. HEMATOLOGIC/LYMPHATIC: No anemia. No purpura. No petechiae. No prolonged or excessive bleeding. No palpable lymph nodes. PHYSICAL EXAMINATION: VITAL SIGNS: Temperature 98.6, pulse 73, respiratory rate 18, BP 111/58, pulse ox 96%. HEENT: Head normocephalic, atraumatic. Eyes: Extraocular muscles are intact. Pupils are equal, round and reactive to light and accommodation. Ears: No lesions. Nose appeared normal. Throat: No exudate or erythema. NECK: Supple. No JVD, no carotid bruit. No lymphadenopathy or thyromegaly. LUNGS: Clear to auscultation. Percussion note normal. Chest symmetrical. HEART: S1, S2, no S3. No murmurs. No cyanosis or clubbing. No ascites. Pulses: Dorsalis pedis and posterior tibial pulses +1 to +2 both sides. ABDOMEN: Soft. Nontender. Bowel sounds active. No CVA tenderness. No mass felt. EXTREMITIES: No edema. Full range of motion of all extremities, equal. NEUROLOGIC: No focal deficit. Cranial nerves II through XII are grossly intact. No headache, no double vision or headache. SKIN: Not dry. Intact. Turgor - normal. LYMPHATIC: No palpable lymph nodes/no lymphedema. MUSCULOSKELETAL: Normal joints with no swelling. Muscle tone is normal. The patient's condition is stable. 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 TIME SPENT: More than 30 minutes. Plan and coordination of the patient's care discussed in the presence of nurse. SNEHAL
[2018-08-09] MEDS: NORVASC PO SCH (20:49)
[2018-08-09] MEDS: LIPITOR PO SCH (20:49)
[2018-08-10] MEDS: CATAPRES PO SCH ×2 (09:09→20:39)
[2018-08-10] MEDS: MEGACE PO SCH (09:09)
[2018-08-10] MEDS: ASPIRIN EC PO SCH (09:09)
[2018-08-10] MEDS: COZAAR PO SCH (09:10)
[2018-08-10] MEDS: PLAVIX PO SCH (09:10)
[2018-08-10] MEDS: FLOMAX PO SCH (09:10)
[2018-08-10] MEDS: MYLANTA SUSP PO PRN ×2 (14:02→17:06)
[2018-08-10] MEDS: NORVASC PO SCH (20:39)
[2018-08-10] MEDS: LIPITOR PO SCH (20:40)
[2018-08-11] MEDS: ASPIRIN EC PO SCH (07:46)
[2018-08-11] MEDS: COZAAR PO SCH (08:54)
[2018-08-11] MEDS: MEGACE PO SCH (08:54)
[2018-08-11] MEDS: FLOMAX PO SCH (08:54)
[2018-08-11] MEDS: CATAPRES PO SCH ×2 (08:55→21:14)
[2018-08-11] MEDS: PLAVIX PO SCH (08:55)
[2018-08-11] MEDS: MYLANTA SUSP PO PRN (11:19)
[2018-08-11] MEDS: NORVASC PO SCH (21:14)
[2018-08-11] MEDS: LIPITOR PO SCH (21:14)
[2018-08-12] MEDS: MEGACE PO SCH (09:34)
[2018-08-12] MEDS: CATAPRES PO SCH ×2 (09:34→21:14)
[2018-08-12] MEDS: PLAVIX PO SCH (09:34)
[2018-08-12] MEDS: COZAAR PO SCH (09:34)
[2018-08-12] MEDS: FLOMAX PO SCH (09:34)
[2018-08-12] MEDS: ASPIRIN EC PO SCH (09:35)
[2018-08-12] MEDS: LEXAPRO PO SCH (09:35)
--- NOTE | 2018-08-12 09:58 | PCM.PROG ---
Attending Provider: ATTENDING PROVIDER: Dr. EVELIO ISAACS This patient is seen with Fatoumata Hansen, Nurse Practitioner. DATE OF SERVICE: 08/12/18 SUBJECTIVE: This 83 year old WHITE/ M was hospitalized 08/05/18. Lying in bed resting comfortably. He has been getting up and walking. He is still not eating much at all. He is till having to be catheterized for residual urine. REVIEW OF SYSTEMS: CONSTITUTIONAL: Weakness. No night sweats. No malaise, lethargy. No fever or chills. HEENT: Eyes: No visual changes. No eye pain. No eye discharge. ENT: No runny nose. No epistaxis. No sinus pain. No odynophagia. No congestion. RESPIRATORY: No cough, no congestion. No hemoptysis. No shortness of breath. CARDIOVASCULAR: No angina symptoms. No CHF symptoms. No atypical chest pain for CAD. No palpitations. No orthopnea.. GASTROINTESTINAL: Decreased appetite. No abdominal pain. No nausea or vomiting. No diarrhea or constipation. No hematemesis. No hematochezia. GENITOURINARY: No urgency. No frequency. No dysuria. No hematuria. No obstructive symptoms. No discharge. No pain. No significant abnormal bleeding. MUSCULOSKELETAL: No musculoskeletal pain; no joint swelling. NEUROLOGICAL: Awake, alert, oriented to time, place and person. No headache. No neck pain. No syncope. No seizures. No dizziness. PSYCHIATRIC: Depression. Not anxious. No suicidal thoughts. No homicidal thoughts. SKIN: No rash. No lesions. No wounds. ENDOCRINE: No unexplained weight loss. No weight gain. HEMATOLOGIC/LYMPHATIC: No anemia. No purpura. No petechiae. No prolonged or excessive bleeding. No palpable lymph nodes. PHYSICAL EXAMINATION: GENERAL: The patient is awake, alert and oriented, lying in bed in no distress. VITAL SIGNS: Temperature 98.0 F, Pulse 83, Respiratory Rate 16, BP 119/72, Pulse Ox 99% HEENT: Head normocephalic, atraumatic. Eyes: Extraocular muscles are intact. Pupils are equal, round and reactive to light and accommodation. Ears: No lesions. Nose appeared normal. Throat: No exudate or erythema. NECK: Supple. No JVD, no carotid bruit. No lymphadenopathy or thyromegaly. LUNGS: Diminished breath sounds. Clear to auscultation. Percussion note normal. Chest symmetrical. HEART: S1, S2, no S3. No murmurs. No cyanosis or clubbing. No ascites. Pulses: Dorsalis pedis and posterior tibial pulses +1 to +2 both sides. ABDOMEN: Soft. Non-tender. Bowel sounds active. No CVA tenderness. No mass felt. EXTREMITIES: No edema. Full range of motion of all extremities, equal. NEUROLOGIC: No focal deficit. Cranial nerves II through XII are grossly intact. No headache, no double vision or headache. SKIN: Not dry. Intact. Turgor-normal. LYMPHATIC: No palpable lymph nodes/no lymphedema. MUSCULOSKELETAL: Normal joints with no swelling. Muscle tone is normal. LAB REVIEW: 08/12/18 04:50 08/12/18 04:50 08/12/18 04:50: Sodium 126.9 L, Potassium 3.81, Chloride 96.9 L, Carbon Dioxide 21.2 L, Anion Gap 12.61, BUN 9.9, Creatinine 0.72, Estimated GFR (MDRD) 105.00, BUN/Creatinine Ratio 13.75, Glucose 94.3, Calcium 8.75, Total Bilirubin 1.30, AST 28.1, ALT 28.5, Alkaline Phosphatase 41.5 L, Total Protein 6.55, Albumin 3.68, Globulin 2.87, Albumin/Globulin Ratio 1.28 08/12/18 04:50: WBC 5.04, RBC 3.66 L, Hgb 12.3 L, Hct 33.5 L, MCV 91.5, MCH 33.6 H, MCHC 36.7 H, RDW Coeff of Renetta 11.9, Plt Count 228, Immature Gran % (Auto ) 0.2, Neut % (Auto) 61.3, Lymph % (Auto) 21.8, [place] % (Auto) 11.3 H, Eos % ( Auto) 4.6, Baso % (Auto) 0.8, Immature Gran # (Auto) 0.0, Neut # (Auto) 3.1, Lymph # (Auto) 1.1, [place] # (Auto) 0.6, Eos # (Auto) 0.2, Baso # (Auto) 0.0 ASSESSMENT: 1. Depression, will start Lexapro. 2. Decreased appetite. 3. Left pontine CVA. 4. Decreased appetite. 5. Hypertensive encephalopathy. 6. Decline in function. 7. Hypertension. 8. Generalized weakness. PLAN: 1. Continue Physical Therapy. 2. The patient has an appointment with Dr. Dwight Guillen 08/19/18 at 10:[address] Duron 08/20/18 at 10:30 a.m. 3. Lexapro 10 mg daily. 4. Regular diet. Plan and coordination of the patient's care discussed in the presence of Trim Line Worker and nurse. CONDITION: Stable SCRIBED BY: LUIS ARMANDO PRATT Center Administrator scribed while in presence of service performed by Dr. Isaacs/Fatoumata Hansen APRN on 08/12/18 ([id number])
[2018-08-12] MEDS: MYLANTA SUSP PO PRN (11:36)
[2018-08-12] MEDS ORDERED: URO-JET MUCOUSMEMB STA (15:25)
[2018-08-12] MEDS: NORVASC PO SCH (21:14)
[2018-08-12] MEDS: LIPITOR PO SCH (21:15)
[2018-08-12] MEDS ORDERED: URO-JET MUCOUSMEMB PRN (22:19)
[2018-08-13] MEDS ORDERED: SODIUM CHLORIDE 500 ML IV SCH (09:00)
[2018-08-13] MEDS: MEGACE PO SCH (09:04)
[2018-08-13] MEDS: PLAVIX PO SCH (09:04)
[2018-08-13] MEDS: CATAPRES PO SCH ×2 (09:05→21:13)
[2018-08-13] MEDS: ASPIRIN EC PO SCH (09:05)
[2018-08-13] MEDS: LEXAPRO PO SCH (09:05)
[2018-08-13] MEDS: COZAAR PO SCH (09:05)
[2018-08-13] MEDS: FLOMAX PO SCH (09:05)
--- NOTE | 2018-08-13 09:30 | PN ---
DATE OF SERVICE: 08/09/18 SUBJECTIVE: The patient is seen and examined with the nurse practitioner. The patient's condition has stabilized. He is oriented to time, place and person. He is strongly advised to keep walking. Physical Therapy for ataxia is working well. His appetite is not up to par. He is going to be given Megace. TIME SPENT: More than 30 minutes. Plan and coordination of the patient's care discussed in the presence of nurse. SNEHAL
[2018-08-13] MEDS: SODIUM CHLORIDE 1,000 ML IV SCH ×2 (11:00→21:14)
[2018-08-13] MEDS: LIPITOR PO SCH (21:13)
[2018-08-13] MEDS: NORVASC PO SCH (21:14)
[2018-08-14] MEDS: COZAAR PO SCH (10:00)
[2018-08-14] MEDS: MEGACE PO SCH (10:00)
[2018-08-14] MEDS: PLAVIX PO SCH (10:00)
[2018-08-14] MEDS: CATAPRES PO SCH ×2 (10:00→20:54)
[2018-08-14] MEDS: ASPIRIN EC PO SCH (10:01)
[2018-08-14] MEDS: LEXAPRO PO SCH (10:01)
[2018-08-14] MEDS: SODIUM CHLORIDE 1,000 ML IV SCH ×2 (10:01→23:21)
[2018-08-14] MEDS: FLOMAX PO SCH (10:01)
[2018-08-14] MEDS: MYRBETRIQ PO SCH (10:04)
--- NOTE | 2018-08-14 10:05 | PCM.PROG ---
Attending Provider: ATTENDING PROVIDER: Dr. EVELIO DUONG This patient is seen with Fatoumata Hansen, Nurse Practitioner. DATE OF SERVICE: 08/14/18 SUBJECTIVE: This 83 year old WHITE/ M was hospitalized 08/05/18. The patient is sitting in chair resting comfortably. He has been doing well with PT. He is having improved residual urines but still needing catheterizing at least once daily. He is still not eating much. REVIEW OF SYSTEMS: CONSTITUTIONAL: Weakness. No night sweats. No malaise, lethargy. No fever or chills. HEENT: Eyes: No visual changes. No eye pain. No eye discharge. ENT: No runny nose. No epistaxis. No sinus pain. No odynophagia. No congestion. RESPIRATORY: No cough, no congestion. No hemoptysis. No shortness of breath. CARDIOVASCULAR: No angina symptoms. No CHF symptoms. No atypical chest pain for CAD. No palpitations. No orthopnea.. GASTROINTESTINAL: Decreased appetite. No abdominal pain. No nausea or vomiting. No diarrhea or constipation. No hematemesis. No hematochezia. GENITOURINARY: No urgency. No frequency. No dysuria. No hematuria. No obstructive symptoms. No discharge. No pain. No significant abnormal bleeding. MUSCULOSKELETAL: No musculoskeletal pain; no joint swelling. NEUROLOGICAL: Awake, alert, oriented to time, place and person. No headache. No neck pain. No syncope. No seizures. No dizziness. PSYCHIATRIC: Not anxious. No depression. No suicidal thoughts. No homicidal thoughts. SKIN: No rash. No lesions. No wounds. ENDOCRINE: No unexplained weight loss. No weight gain. HEMATOLOGIC/LYMPHATIC: No anemia. No purpura. No petechiae. No prolonged or excessive bleeding. No palpable lymph nodes. PHYSICAL EXAMINATION: GENERAL: The patient is awake, alert and oriented, sitting in chair in no distress. VITAL SIGNS: Temperature 98.0 F, Pulse 82, Respiratory Rate 16, BP 142/78, Pulse Ox 99% HEENT: Head normocephalic, atraumatic. Eyes: Extraocular muscles are intact. Pupils are equal, round and reactive to light and accommodation. Ears: No lesions. Nose appeared normal. Throat: No exudate or erythema. NECK: Supple. No JVD, no carotid bruit. No lymphadenopathy or thyromegaly. LUNGS: Diminished breath sounds. Clear to auscultation. Percussion note normal. Chest symmetrical. HEART: S1, S2, no S3. No murmurs. No cyanosis or clubbing. No ascites. Pulses: Dorsalis pedis and posterior tibial pulses +1 to +2 both sides. ABDOMEN: Soft. Non-tender. Bowel sounds active. No CVA tenderness. No mass felt. EXTREMITIES: No edema. Full range of motion of all extremities, equal. NEUROLOGIC: No focal deficit. Cranial nerves II through XII are grossly intact. No headache, no double vision or headache. SKIN: Not dry. Intact. Turgor-normal. LYMPHATIC: No palpable lymph nodes/no lymphedema. MUSCULOSKELETAL: Normal joints with no swelling. Muscle tone is normal. LAB REVIEW: 08/13/18 04:30 08/14/18 04:30 08/14/18 04:30: Sodium 125.3 L, Potassium 3.99, Chloride 98.7, Carbon Dioxide 19.7 L, Anion Gap 10.89, BUN 6.8 L, Creatinine 0.63, Estimated GFR (MDRD) 122.00 , BUN/Creatinine Ratio 10.79, Glucose 91.2, Calcium 8.37 L ASSESSMENT: 1. Depression, will start Lexapro. 2. Decreased appetite. 3. Left pontine CVA. 4. Decreased appetite. 5. Hypertensive encephalopathy. 6. Decline in function. 7. Hypertension. 8. Generalized weakness. PLAN: 1. Home visit today. 2. Continue IV fluids. Plan and coordination of the patient's care discussed in the presence of Slusher Operator and nurse. CONDITION: Stable SCRIBED BY: Sandi BOWENS scribed while in presence of service performed by Dr. Duong/Fatoumata Hansen APRN on 08/14/18 ([id number])
--- NOTE | 2018-08-14 10:54 | PN ---
DATE OF SERVICE: 08/12/18 Camron Kohler was seen and examined with the nurse practitioner. The patient is doing well. He is still has post left pontine CVA. The ataxia is much less. The patient's lab test was negative. TIME SPENT: More than 30 minutes. Plan and coordination of the patient's care discussed in the presence of nurse. SNEHAL
[2018-08-14] MEDS: NORVASC PO SCH (20:54)
[2018-08-14] MEDS: LIPITOR PO SCH (20:54)
[2018-08-15 06:07] VITALS: BP 137/66; TEMP 98.9
[2018-08-15] MEDS: PLAVIX PO SCH (08:40)
[2018-08-15] MEDS: MYRBETRIQ PO SCH (08:40)
[2018-08-15] MEDS: COZAAR PO SCH (08:40)
[2018-08-15] MEDS: MEGACE PO SCH (08:40)
[2018-08-15] MEDS: LEXAPRO PO SCH (08:41)
[2018-08-15] MEDS: FLOMAX PO SCH (08:41)
[2018-08-15] MEDS: ASPIRIN EC PO SCH (08:41)
[2018-08-15] MEDS: CATAPRES PO SCH (08:41)
[2018-08-15] MEDS: SODIUM CHLORIDE 1,000 ML IV SCH (11:09)
--- NOTE | 2018-08-15 12:46 | CM.DICTOOL ---
ADMISSION: 08/05/18 19:10 DISCHARGE: AUGUST 15, 2018 FROM [facility] DATE OF SERVICE: 08/15/18 FINAL DIAGNOSIS LEFT PONTINE CVA ENCEPHALOPATHY DECLINE IN FUNCTIONAL MOBILITY HYPERTENSION HYPONATREMIA BILATERAL CAROTID STENOSIS; RIGHT GREATER THAN LEFT DYSLIPIDEMIA BPH URINARY RETENTION [place], 1988 CARDIAC CATH COLONOSCOPY HERNIA REPAIR LAST VITALS Temp Pulse Resp BP Pulse Ox 98.9 F 68 16 137/66 98 08/15/18 06:00 08/15/18 06:00 08/15/18 06:00 08/15/18 06:00 08/15/18 06:00 TAKE THESE MEDICATIONS AT HOME Amlodipine Besylate (Norvasc) 5 mg PO BEDTIME [facility] Last Admin: 08/14/18 20:54 Dose: 5 mg Aspirin (Aspirin Ec) 81 mg PO DAILYWM [facility] Last Admin: 08/15/18 08:41 Dose: 81 mg Atorvastatin Calcium (Lipitor) 40 mg PO BEDTIME [facility] Last Admin: 08/14/18 20:54 Dose: 40 mg Clonidine (Catapres) 0.1 mg PO BID [facility] Last Admin: 08/15/18 08:41 Dose: 0.1 mg Clopidogrel Bisulfate (Plavix) 75 mg PO DAILY [facility] Last Admin: 08/15/18 08:40 Dose: 75 mg Escitalopram Oxalate (Lexapro) 10 mg PO DAILY [facility] Last Admin: 08/15/18 08:41 Dose: 10 mg Losartan Potassium (Cozaar) 50 mg PO DAILY [facility] Last Admin: 08/15/18 08:40 Dose: 50 mg Megestrol Acetate (Megace) 40 mg PO DAILY [facility] Last Admin: 08/15/18 08:40 Dose: 40 mg Mirabegron (Myrbetriq) 25 mg PO DAILY [facility] Last Admin: 08/15/18 08:40 Dose: 25 mg Tamsulosin HCl (Flomax) 0.4 mg PO DAILY [facility] Last Admin: 08/15/18 08:41 Dose: 0.4 mg ALLERGIES No Known Allergies Allergy (Verified 07/21/18 12:04) DISCONTINUED MEDICATIONS NEW PRESCRIPTIONS: MEGACE 40 MG DAILY AMLODIPINE 5 MG DAILY AT BEDTIME LIPITOR 40 MG DAILY AT BEDTIME PLAVIX 75 MG DAILY LEXAPRO 10 MG DAILY FLOMAX 0.4 MG DAILY MYRBETRIQ 25 MG DAILY SMOKING: NOT APPLICABLE DISEASE SPECIFIC EDUCATION: CVA URINARY RETENTION CATHETERIZATION PROCEDURE MEDICATIONS APPOINTMENTS LAB REVIEW: 08/13/18 04:30 08/15/18 04:35 08/15/18 04:35: Sodium 126.8 L, Potassium 3.92, Chloride 99.1, Carbon Dioxide 21.4 L, Anion Gap 10.22, BUN 7.1 L, Creatinine 0.61, Estimated GFR (MDRD) 127.00 , BUN/Creatinine Ratio 11.63, Glucose 86.3, Calcium 8.28 L PLAN: DISCHARGE HOME DIET: REGULAR TOLERATED ACTIVITY: GRADUALLY RESUME. USE ROLLING WALKER FOR AMBULATION IN THE HOME PLEASE FOLLOW EXERCISES GIVEN TO YOU BY THERAPY [facility] HAS BEEN ARRANGED FOR NURSING VISITS; VITAL SIGNS, NUTRITIONAL ASSESSMENT, WEIGHT MEDICATION TEACHING INSTRUCTION ON SELF CATHETERIZATION PROCEDURE PHYSICAL AND OCCUPATIONAL THERAPY SELF CATHETERIZATION WITH 14 FR. CATHETER AT LEAST 3 TIMES A DAY TO DRAIN THE BLADDER. FOLLOW PROCEDURE GIVEN BY NURSING AND WRITTEN INSTRUCTIONS. PLEASE HAVE LABS (CBC, CMP) DRAWN ON AT [facility]. APPOINTMENTS: DR. OLEG LOPEZ, VASCULAR ON 08-19-2018 AT 10:15 DR. SHERYL CARNEY, UROLOGY ON 08-20-2018 AT 10:30 DR. EVELIO DUONG, PCP ON 08-22-2018 AT 8:30 CODE STATUS: FULL CODE MR. STRINGER IS ALERT AND ORIENTED X 3. HE IS INDEPENDENT WITH FEEDING. MEAL INTAKES ARE ONLY FAIR AT 25-50%. MR. STRINGER TRANSFERS SELF FROM BED TO CHAIR AND CHAIR TO BED WITH STAND BY ASSISTANCE. MR. STRINGER HAS SUCCESSFULLY MET ALL SHORT AND RECLAIMER PHYSICAL THERAPY GOALS. HE HAS COMPLETED A HOME VISIT WITH SUCCESSFUL PERFORMANCE OF ALL TRANSFERS IN THE HOME. HE IS INDEPENDENT WITH AMBULATION, BUT UTILIZES A ROLLING WALKER FOR ADDED STABILITY WITH AMBULATION. A ROLLING WALKER WILL BE REQUESTED THROUGH [facility]. MR. STRINGER IS CONTINENT OF BLADDER AND BOWEL. HE VOIDS ONLY SMALL AMOUNTS AND REQUIRES EVERY 8-12 HOUR CATHETERIZATION PROCEDURES BY NURSING FOR URINARY RETENTION. AND MRS STRINGER HAVE BEEN INSTRUCTED IN CATHETERIZATION PROCEDURE. MRS. STRINGER HAS PERFORMED CATHETERIZATION PROCEDURE SUCCESSFULLY X 2. A PRESCRIPTION FOR SIZE 14 GUYANESE STRAIGHT CATHETERS WILL BE SENT TO [facility]. SKIN TURGOR IS FAIR. AREAS OF ECCHYMOSIS NOTED TO THE UPPER EXTREMITIES. NO SKIN BREAKDOWN IS NOTED. EVELIO DUONG MD JEMIMA WAITE APRN
--- NOTE | 2018-08-19 10:52 | PN ---
DATE OF SERVICE: 08/14/18 SUBJECTIVE: The patient was seen and examined with the nurse practitioner. His sodium is up to 125. PHYSICAL EXAMINATION: HEENT: Head normocephalic, atraumatic. Eyes: Extraocular muscles are intact. Pupils are equal, round and reactive to light and accommodation. Ears: No lesions. Nose appeared normal. Throat: No exudate or erythema. NECK: Supple. No JVD, no carotid bruit. No lymphadenopathy or thyromegaly. LUNGS: Clear to auscultation. Percussion note normal. Chest symmetrical. HEART: S1, S2, no S3. No murmurs. No cyanosis or clubbing. No ascites. Pulses: Dorsalis pedis and posterior tibial pulses +1 to +2 both sides. ABDOMEN: Soft. Nontender. Bowel sounds active. No CVA tenderness. No mass felt. EXTREMITIES: No edema. Full range of motion of all extremities, equal. NEUROLOGIC: No focal deficit. Cranial nerves II through XII are grossly intact. No headache, no double vision or headache. SKIN: Not dry. Intact. Turgor - normal. LYMPHATIC: No palpable lymph nodes/no lymphedema. MUSCULOSKELETAL: Normal joints with no swelling. Muscle tone is normal. His blood pressure is under control. He has met the goals set by Physical Therapy. He will be discharged tomorrow. The patient still has problem with his bladder control, is unable to urinate. He has to be catheterized. Will put him on Mybetrique. He already has urology appointment coming. TIME SPENT: More than 30 minutes. Plan and coordination of the patient's care discussed in the presence of nurse. SNEHAL
--- NOTE | 2018-08-19 10:57 | PN ---
DATE OF SERVICE: 08/15/18 SUBJECTIVE: Camron Kohler was seen and examined today. The patient is feeling a lot better, very anxious to go home. Sodium is 126. He is asymptomatic. The patient has history of chronic hyponatremia. His appetite has slowly improved. The patient will be rechecked with the sodium on the day of his return visit to the office. Cardiovascular and neurological status stable. He is able to walk. He has very poor understanding about all of his medical problems in spite of repeated education to the and the patient himself. Condition stable. TIME SPENT: More than 30 minutes. Plan and coordination of the patient's care discussed in the presence of nurse. SNEHAL
--- NOTE | 2018-08-19 14:10 | DS ---
DATE OF SERVICE: 08/15/18 FINAL DIAGNOSIS: 1. LEFT PONTINE CVA 2. ENCEPHALOPATHY 3. DECLINE IN FUNCTIONAL MOBILITY 4. HYPERTENSION 5. HYPONATREMIA 6. BILATERAL CAROTID STENOSIS; RIGHT GREATER THAN LEFT 7. DYSLIPIDEMIA 8. BPH 9. URINARY RETENTION 10. [place], 1988 11. CARDIAC CATH 12. COLONOSCOPY 13. HERNIA REPAIR DISCHARGE INSTRUCTIONS: 1. Discharge home 2. Instruction on self catheterization procedure. Self catheterization with 14 Fr. catheter at least thee times a day to drain the bladder. Follow procedure as given by nursing and written instructions. 3. Please have labs (CBC, CMP) drawn on 08/21/18 at [facility]. 4. Followup appointment with Dr. Isaacs, PCP on 08/22/18 at 8:30 a.m. 5. Followup appointment with Dr. Dwight Guerra, Vascular on 08/19/18 at 10:15 a.m. 6. Followup appointment with Dr. Maxx Duron, Urology on 08/20/18 at 10:30 a.m. 7. [facility] for nursing visits, vital signs, nutritional ssessment, weight medication teaching. 8. Physical and occupational therapy. 9. Please have labs (CBC, CMP) drawn on 08/21/18 at [facility]. MEDICATIONS AT DISCHARGE: Amlodipine 5 mg p.o. bedtime ARMIN Aspirin 81 mg p.o. daily with meal ARMIN Lipitor 40 mg p.o. bedtime [facility]MIN Clonidine (Catapres) 0.1 mg p.o. b.i.d. ARMIN Clopidogrel 75 mg p.o. daily [facility] Escitalopram 10 mg p.o. daily [facility] Losartan 50 mg p.o. daily [facility] Megestrol 40 mg p.o. daily [facility] Mirabegron (Myrbetriq) 25 mg p.o. daily [facility] Tamsulosin (Flomax) 0.4 mg p.o. daily [facility] NEW PRESCRIPTIONS: Megace 40 mg daily Amlodipine 5 mg daily at bedtime Lipitor 40 mg daily at bedtime Plavix 75 mg daily Lexapro 10 mg daily Flomax 0.4 mg daily Myrbetriq 25 mg daily DIET INSTRUCTIONS: Regular as tolerated. ACTIVITY: Gradually resume. Use rolling walker for ambulation in the home. Follow exercises given to you by therapy. SMOKING: N/A DISEASE SPECIFIC EDUCATION: CVA Urinary retention Catheterization procedure Medications Appointments HOSPITAL COURSE: This is an 83-year-old male who initially came to us after having a pontine stroke and hypertensive encephalopathy. He was in [facility] for 2 days and was then transferred to [facility] for neurology evaluation. There were no new findings during his hospital stay at [facility]. There was a neurology consult. He did develop some urinary retention and was having increased amounts of residual urine after voiding, after taking out his catheter. Once he arrived here to undergo physical and occupational therapy, he was in stable condition but he still had significant decline in function with generalized weakness. His blood pressure was controlled. His confusion had resolved however he still was not eating very well, somewhat depressed so he was admitted. Over the course of his hospital stay, he has worked with physical and occupational therapy. He has achieved his goals. He has significantly improved within the past three days, specifically, he was hyponatremic on admission with sodium down to 124. He has been on IV fluids with slowly increase, today is 126.8 however he has been asymptomatic. Again, blood pressure has been controlled. He has continued to have some residual urine after voiding requiring about two catheterizations a day. He does not have a significant amount after each void but again about two times per day. He has an appointment with Urology next Sunday that they are instructed to keep. Both he and his have learned out to cath him and they will do it at least twice a day while at home. He has an appointment with neurology followup scheduled for Sunday. He will followup with us on Sunday, which he will also have a CBC and CMP at the hospital prior to seeing us. Due to his poor appetite and weight loss we did start him on Megace 40 mg daily during his hospital stay and we also started him on Lexapro 10 mg daily. Initially, after being admitted, he was started on Flomax 0.4 mg daily to help improve his urine. It seemed to help minimally. We then started him on Myrbetriq 25 mg which has seemed to have improve it some. He was requiring catheterization after each void and that was only about twice per day. His blood pressure has been controlled on his medications. For the past two days he has been eating more around 25 to 50% of his meals which is a significant improvement. He was eating about 10% of each of his meals. He is more alert and oriented. He can stand on his own. He does have a walker. He has made significant improvements. He did well on his home visit. He has a history of noncompliance with medications and self medicating himself. We have instructed both he and his on the importance of continuing his medication regimen at home. We will followup with him closely. He is discharged in stable condition. TIME SPENT: More than 60 minutes. SNEHAL
== END 2018-08-15 14:45 | disposition home or self-care (01) | DRG 71 ==
LOC: SCU 19:10 → MEDSURG B 08-07 14:30
PROVIDERS: ADMIT Internal Medicine; ATTEND Internal Medicine
DX: G93.40 Encephalopathy, unspecified (principal); E87.1 Hypo-osmolality and hyponatremia; E78.5 Hyperlipidemia, unspecified; I10 Essential (primary) hypertension; I65.23 Occlusion and stenosis of bilateral carotid arteries; I25.2 Old myocardial infarction; R33.9 Retention of urine, unspecified; R63.0 Anorexia; R53.1 Weakness; N40.0 Benign prostatic hyperplasia without lower urinary tract symptoms; F32.9 Major depressive disorder, single episode, unspecified
CPT/HCPCS: 36415; 80048; 80053; 84443; 85025; 87081; 93005; 93010; 97802